=== PATIENT | female | born 1950 | race Caucasian/White ===

== ENCOUNTER 2018-02-22 14:41 | Inpatient (IN) | payer MEDICARE ==
[~2018-02-22] VITALS: Ht 160 cm; Wt 128.0 kg
--- NOTE | ~2018-02-22 | CON ---
[place], [place] REPORT OF CONSULTATION NAME: GLORIA BENITO [facility] #: [id number] UNIT #: [id number] ROOM: 416 DOCTOR: NITIN MORAN DO BIRTHDATE: [birth year] DOS: 02/23/2018 REQUESTING PHYSICIAN: Hospitalist service. REASON FOR CONSULTATION: Acute exacerbation of COPD. HISTORY OF PRESENT ILLNESS: The patient is a 68-year-old female who presented to the ED on 02/22/2018 due to shortness of breath. The patient reports that she has been experiencing cold symptoms including a cough as well as fatigue and itching in her throat for the past few weeks. She states that her boyfriend had similar symptoms and he reportedly about 10 days ago. The patient states that at his about a week ago, it seemed that everybody there had the same cold symptoms. The patient states that she has progressively been experiencing dyspnea on exertion to the point that she was not able to go to the bathroom and shower. She states that her son brought her to the ED for evaluation. A chest x-ray obtained in the ED showed no acute cardiopulmonary process. She was diagnosed with an acute exacerbation of COPD. Administered a DuoNeb treatment and a dose of IV Solu-Medrol and she was subsequently admitted to the general medical floor with telemetry monitoring. The patient reports that she does not use any supplemental oxygen at home. Reportedly, she has been using other people's leftover medications. She states that she uses Spiriva and another inhaler that she does not remember the name of. The Pulmonary Medicine Service was consulted for further management of the patient's acute exacerbation of COPD. PAST MEDICAL HISTORY: Lists include hypertension, hyperlipidemia, COPD, type 2 diabetes, diastolic CHF, CAD, gastroesophageal reflux disease and history of a prior myocardial infarction. PAST SURGICAL HISTORY: Reviewed of the patient's chart shows a history of coronary artery stent placement, history of an appendectomy and history of a cholecystectomy. SOCIAL HISTORY: The patient states that she has smoked 1 pack per day since she started high school. The patient denies use of alcohol or any illicit substances. She has one child. FAMILY HISTORY: The patient's father reportedly from lung cancer at age 95. The patient's mother reportedly from lung cancer in her seventh or eighth decade of life. The patient's sister reportedly from a head and neck cancer at age 64. ALLERGIES: No known drug allergies. CURRENT MEDICATIONS: These include potassium chloride 10 mEq daily, furosemide 20 mg daily, carvedilol 3.125 mg daily, clopidogrel 75 mg daily, omeprazole 20 mg daily, atorvastatin 80 mg before bed, subcutaneous Lovenox 40 mg daily, gabapentin 600 mg 3 times a day, DuoNeb treatments every 4 hours, guaifenesin 1200 mg every 12 hours, IV Solu-Medrol 60 mg every 12 hours and sliding scale insulin. [place], [place] REPORT OF CONSULTATION NAME: GLORIA BENITO UNIT #: [id number] ROOM: 416 DOCTOR: NITIN MORAN DO BIRTHDATE: [birth year] REVIEW OF SYSTEMS: GENERAL: Denies fevers or chills. HEENT: Denies changes to vision, hearing, eye pain, ear pain or dysphagia. She does admit to throat irritation. CARDIOVASCULAR: Denies chest pain, palpitations or diaphoresis. RESPIRATORY: Admits to shortness of breath, dyspnea on exertion, cough, wheezing, but denies production of sputum. ABDOMEN: Denies nausea, vomiting, abdominal pain, diarrhea, melena or hematochezia. GENITOURINARY: Denies dysuria, hematuria, increased urinary frequency or urgency. NEUROLOGICAL: Denies lightheadedness or dizziness. PSYCHOLOGICAL: Denies anxiety, depression or substance abuse. ENDOCRINE: Denies intolerance to heat or cold. SKIN: Denies any new rashes, ulcers, or lesions. PHYSICAL EXAMINATION: VITAL SIGNS: Temperature at 97.6 degrees Fahrenheit, heart rate at 86, respiratory rate at 19, blood pressure 129/71, pulse oximetry 92% on 3 liters via nasal cannula. GENERAL APPEARANCE: The patient was awake, alert, responsive, cooperative and in no acute distress. HEENT: Head was normocephalic and atraumatic. There were no lesions or ulcerations noted to eyes. NECK: Trachea appears midline. HEART: Regular rate and rhythm was noted. Positive S1, S2 sounds were heard. No murmurs, rubs or gallops were appreciated. The bilateral lower extremities were with trace edema. PULMONARY: Wheezing was heard on auscultation. No rhonchi or rales were appreciated. ABDOMEN: Soft and nontender to palpation. Bowel sounds are auscultated. The abdomen was obese. EXTREMITIES: The bilateral lower extremities were with trace edema. No clubbing, cyanosis or erythema was noted. NEUROLOGIC: The patient was grossly without any focal neurologic deficits. Cranial nerves 2-12 were grossly intact. PSYCHOLOGICAL: The patient was with a normal mood and affect. She was a poor historian. SKIN: Warm and dry without any induration or erythema. LABORATORY DATA: CBC from today shows white count at 5.1, hemoglobin 15.2, hematocrit 47.6 and platelets 224. Coagulation studies from today show PT 10.7, INR 1.0, activated PTT 21.9. Chemistries from today show sodium 138, potassium 4.4, chloride 101, bicarbonate 30, BUN 26, creatinine 1.11, glucose 298, hemoglobin A1c was 8.1, calcium 9.2, phosphorus 3.3, magnesium 2.1, total bilirubin 0.4, AST 26, ALT 57, alkaline phosphatase 97, albumin 3.4, vitamin B12 369, vitamin D 22.2, folic acid 10.55, TSH 0.357, free T4 1.12. Lipid panel is unremarkable. [place], [place] REPORT OF CONSULTATION [id number] #: [id number] ROOM: 416 DOCTOR: NITIN MORAN DO BIRTHDATE: [birth year] IMAGING STUDIES: Chest x-ray from 02/22/2018 showed no acute cardiopulmonary process and no change compared to a prior film from 03/27/2013. IMPRESSION: 1. Acute hypoxic respiratory failure. 2. Acute chronic obstructive pulmonary disease exacerbation. 3. Morbid obesity. 4. Lymphopenia. 5. Hyperglycemia. 6. Vitamin D deficiency. 7. Subclinical hypothyroidism. 8. History of chronic obstructive pulmonary disease. 9. History of congestive heart failure. 10. History of hypertension. 11. History of coronary artery disease. 12. History of gastroesophageal reflux disease. 13. History of hyperlipidemia. 14. History of type 2 diabetes. PLAN OF MANAGEMENT: The patient is currently on IV Solu-Medrol, guaifenesin and bronchodilator therapy. Sputum culture, rapid flu and a respiratory viral panel have been ordered. An arterial blood gas was ordered, but the patient refused to allow it to be drawn. The patient was counseled on smoking cessation for 3-5 minutes. Nicoderm patch was added to the patient's medication regimen. Supplemental oxygen should be titrated to maintain pulse oximetry at 92% or greater. Pulmonary medicine will continue to follow. Nitin Moran DO SAILAJA PRIDE MD CM:CONSTR:REPORT OF CONSULTATION 1401 02/23/18 1519 interface
--- NOTE | ~2018-02-22 | PR ---
[place], [place] PROGRESS NOTE NAME: GLORIA BENITO [facility] #: [id number] UNIT #: [id number] ROOM: 401 DOCTOR: BIGG DIXON MD,SAILAJA BIRTHDATE: [birth year] DOS: 02/24/2018 SUBJECTIVE: The patient independently seen and examined, [id number] encounter, history was confirmed. Physical examination performed. Labs reviewed. The assessment and management was personally completed. Note done by the medical assistant dermatology approved as well. She reported reduction in symptoms of cough, shortness of breath and wheezing. Denies symptoms of chest pain. The patient denies edema or pain of the lower extremities. PHYSICAL EXAMINATION: VITAL SIGNS: Normal temperature, respiratory rate 18, heart rate of 66, blood pressure 125/61. The pulse oxygen saturation recorded on 2 liters 94% saturation. HEENT: Examination shows head was atraumatic. Eyes nonicterus. NECK: Supple. CARDIOVASCULAR: S1, S2 is audible. LUNGS: The patient was noted without any crackles. Mild to moderate expiratory wheezing was noted, which was decreased as compared to previous examinations. ABDOMEN: Soft and chronic obesity. EXTREMITIES: Shows chronic obesity. LABORATORY DATA: CMP today: BUN 28 and glucose 341. CBC: WBC count 12.6. IMPRESSION: The patient who has been currently noted with; 1. Acute respiratory failure with acute exacerbation of chronic obstructive pulmonary disease. 2. Acute bronchitis. PLAN OF MANAGEMENT: Decrease the Solu-Medrol at the present time, that will also result in improvement of the uncontrolled hyperglycemia with diabetes mellitus. Potential discharge in the morning could be considered depending further improvement in the respiratory symptoms. SAILAJA PRIDE MD CM:PNTRANS [id number] SAILAJA DIXON MD 02/24/18 1445 interface
--- NOTE | ~2018-02-22 | CON ---
[place], [place] REPORT OF CONSULTATION NAME: GLORIA BENITO UNIT #: [id number] ROOM: 401 DOCTOR: BIGG DIXON MDSAILAJA BIRTHDATE: [birth year] DOS: 02/23/2018 PULMONARY CONSULTATION, EVALUATION AND MANAGEMENT CONSULTATION REQUESTED BY: Hospitalist Service. REASON FOR CONSULTATION: Assessment of COPD. HISTORY OF PRESENT ILLNESS: The patient is a 68-year-old white female patient who was seen and examined personally with [id number] encounter. History was taken from the patient. Physical examination was performed. Labs were reviewed. The assessment and management on today's visit was personally completed as well. The patient presented to the Emergency Room, stated that she has developed symptoms of coughing from exposure to people who gathered for the of her . The symptoms started last week, which have been noted gradually worsening, increased coughing, associated with shortness of breath and wheezing and chest tightness. She was also noted with symptoms of headache with that. The cough has been noted mostly nonproductive. She denies symptoms of chest pain. Currently, the patient is admitted to the hospital and being treated for acute exacerbation of COPD. REVIEW OF SYSTEMS: Completed by the medical appointment scheduler. PAST MEDICAL HISTORY: Noted with: 1. History of COPD, nonadherence with treatment because of lack of insurance coverage for the medication and other reasons. 2. History of congestive heart failure, diastolic dysfunction. 3. Essential hypertension. 4. Gastroesophageal reflux. 5. Coronary artery disease. 6. Myocardial infarction. 7. Hyperlipidemia. 8. Type 2 diabetes mellitus. 9. Chronic severe obesity. PAST SURGICAL HISTORY: 1. Cardiac catheterization and coronary stent insertion. 2. Appendectomy. 3. Cholecystectomy. SOCIAL HISTORY: The patient lives at home. Denies any history of alcohol use or illicit drug use. She is currently , has 1 child. Tobacco use is noted since earlier, 1 pack of cigarettes per day, active use. FAMILY HISTORY: Father with complications of lung cancer. Mother also with complications of lung cancer as well. MEDICATIONS: List noted use of ProAir HFA, Lipitor, Coreg, Plavix, Lasix, gabapentin, metformin, omeprazole, and potassium chloride. [place], [place] REPORT OF CONSULTATION NAME: GLORIA BENITO UNIT #: [id number] ROOM: [facility] DOCTOR: BIGG DIXON MD,SAILAJA BIRTHDATE: [birth year] DRUG ALLERGIES: No known drug allergies. PHYSICAL EXAMINATION: GENERAL: This is a 68-year-old female patient who has been currently noted sitting on the bed without any acute distress. Using oxygen supplementation via nasal cannula. Height of 5 feet 3 inches, weight of 282 pounds, BMI 49.9. VITAL SIGNS: Show normal temperature, respiratory rate 18-19, heart rate 83-78, blood pressure 127/90-129/71. Pulse oxygen saturation noted as 88% saturation on room air at rest, with 3 liters as 93% saturation. HEENT: Head was atraumatic. Eyes nonicterus. NECK: Supple. Decreased posterior pharyngeal space. CARDIOVASCULAR: S1, S2 audible. LUNGS: Noted with diffuse expiratory wheezing in the lungs bilaterally. There were no crackles. ABDOMEN: Soft with chronic severe obesity. EXTREMITIES: Noted without any acute edema, clubbing, or cyanosis. CENTRAL NERVOUS SYSTEM: Cranial nerves 2 through 12 are intact. No focal deficit. MUSCULOSKELETAL: Noted without any acute deformities. LABORATORY DATA: CBC that was done on admission yesterday, normal WBC count, hemoglobin 16.2, platelet count normal. PT, PTT noted normal yesterday. CMP yesterday: BUN 18, creatinine was normal. Remaining electrolytes normal. CBC this morning remains normal. PT, PTT repeated again this morning normal. Glucose noted 298 this morning, BUN 26. RADIOLOGY: Chest x-ray that was done on 02/22/2018 was noted without any acute pulmonary abnormality, except hyperinflation. IMPRESSION: The patient who will be currently admitted to the hospital noted with: 1. Acute hypoxic respiratory failure as a result of acute exacerbation of chronic obstructive pulmonary disease with history of chronic nicotine dependence. 2. Chronic obesity, highly suggestive based on physical habitus and examination for suspected obstructive sleep apnea disorder. 3. The patient with chronic nicotine dependence. 4. History of type 2 diabetes mellitus, which is uncontrolled because of corticosteroids. 5. Acute infection was also noted. PLAN OF MANAGEMENT: I agree with the use of Solu-Medrol, bronchodilators, nicotine replacement patches ordered. The arterial blood gases ordered to assess for hypercapnia, cause of the headache. The patient refused to have the arterial blood gases done. Titrate oxygen supplementation to maintain pulse ox 92% or greater. Other additional treatment changes to be made for the patient based on progression of the illness. Other care and therapy to be given. Obtain the nasal swab, viral assessment for the current cause of exacerbation of COPD. Continue other supportive therapy, plan of management and care. Sputum for Gram stain and culture if the patient is able to expectorate sputum. [place], [place] REPORT OF CONSULTATION NAME: GLORIA BENITO UNIT #: [id number] ROOM: [facility] DOCTOR: SAILAJA VILLEGAS MD BIRTHDATE: [birth year] SAILAJA PRIDE MD CM:CONSTR:REPORT OF CONSULTATION 1334 03/07/18 1001 interface
--- NOTE | ~2018-02-22 | PR ---
[place], [place] PROGRESS NOTE NAME: GLORIA BENITO [facility] #: [id number] UNIT #: [id number] ROOM: 401 DOCTOR: NITIN MORAN DO BIRTHDATE: [birth year] DOS: 02/24/2018 SUBJECTIVE: The patient was seen and examined at the bedside. She denies fevers, chills, chest pain, nausea, vomiting, abdominal pain or any changes in her bowel or bladder habits. The patient reports that her breathing is overall better. She is still with an occasional cough productive for yellow sputum. She does admit to wheezing. She is wondering when she would be stable for discharge. OBJECTIVE: VITAL SIGNS: Show temperature at 98.2 degrees Fahrenheit, heart rate 66, respiratory rate 18, most recent blood pressure was 125/61, pulse oximetry is 94% on 2 liters via nasal cannula. GENERAL APPEARANCE: The patient was awake, alert, responsive, cooperative and in no acute distress. HEENT: Head was normocephalic and atraumatic. There were no lesions or ulcerations noted to the eyes. NECK: Trachea appears midline. HEART: Regular rate and rhythm was noted. Positive S1, S2 sounds were heard. No murmurs, rubs or gallops were appreciated. The bilateral lower extremities were without edema. PULMONARY: Wheezing was heard on auscultation. No rhonchi or rales were appreciated. ABDOMEN: Soft and nontender to palpation. Bowel sounds were present. The abdomen was obese. EXTREMITIES: Bilateral lower extremities were without edema. No clubbing, cyanosis or erythema was noted. LABORATORY DATA: CBC from today shows white count at 12.6, hemoglobin 15.2, hematocrit 48.0, platelets 234. Chemistries from today shows sodium 140, potassium 4.9, chloride 103, bicarbonate 30, BUN 28, creatinine 1.08, glucose was 341, calcium 10.1, total bilirubin 0.3, AST 21, ALT 44, alkaline phosphatase 91, albumin 3.4. SEROLOGIES: A viral panel is pending. MICROBIOLOGY: Flu swab was negative for flu A and flu B. Sputum cultures are still uncollected. IMPRESSION: 1. Acute hypoxic respiratory failure secondary to an acute exacerbation of chronic obstructive pulmonary disease, which is improving. 2. Leukocytosis. 3. Lymphopenia. 4. Hyperglycemia. 5. Tobacco abuse. 6. Morbid obesity. 7. Suspected sleep apnea secondary to the patient's body habitus. 8. Noncompliance with medical therapy as the patient has been refusing bedside blood glucose monitoring, she has been refusing arterial blood gases and she has [place], [place] PROGRESS NOTE NAME: GLORIA BENITO UNIT #: [id number] ROOM: 401 DOCTOR: NITIN MORAN DO BIRTHDATE: [birth year] been refusing use of a BiPAP. PLAN OF MANAGEMENT: The patient is currently being treated with IV Solu-Medrol, guaifenesin and bronchodilator therapy for her acute exacerbation of COPD. She is clinically improving. Serologies and sputum cultures have been ordered. Supplemental oxygen should be titrated to maintain pulse oximetry at 92% or greater. If the patient continues to improve clinically, discharge as early as tomorrow may be considered. Pulmonary medicine will continue to follow. Nitin Moran DO SAILAJA PRIDE MD CM:PNHALEY [id number] NITIN MORAN DO 02/24/18 1001 interface
--- NOTE | ~2018-02-22 | EKG ---
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
--- NOTE | ~2018-02-22 | PR ---
[place], [place] PROGRESS NOTE NAME: GLORIA BENITO UNIT #: [id number] ROOM: 401 DOCTOR: SAILAJA VILLEGAS MD BIRTHDATE: [birth year] DOS: 02/25/2018 PULMONARY PROGRESS NOTE SUBJECTIVE: The patient was seen and examined on 02/25/2018, remains comfortable, stable with reduction of the respiratory symptoms, shortness breath, cough, wheezing, all of them were noted in the last 48 hours gradually. OBJECTIVE: VITAL SIGNS: Normal temperature, respiratory rate 20, heart rate 69, blood pressure 119/93. Pulse ox saturation on 2 liters nasal cannula 93% saturation. HEENT: Examination shows head was atraumatic. Eyes nonicterus. NECK: Supple. CARDIOVASCULAR: S1, S2 is audible. LUNGS: Noted without any wheeze or crackle at the present time. The wheezing has been decreased significantly. Mild to moderate decreased breath sounds noted in the lungs bilaterally. ABDOMEN: Soft and obese. EXTREMITIES: Chronic obesity. LABORATORY DATA: CBC: WBC count 11,000, remaining CBC normal. BMP of the patient, BUN 26 and creatinine normal. IMPRESSION: The patient with progressive resolution and improvement in the respiratory status noted to be resolving, acute hypoxic respiratory failure with acute exacerbation of chronic obstructive pulmonary disease and acute bronchitis. PLAN OF MANAGEMENT: The patient could be considered home discharge at the present time with a tapering dose of prednisone. Bronchodilators. Abstinence of tobacco use was recommended. The patient will be ordered a 6-minute walk test to assess any need for home oxygen supplementation if necessary. Outpatient assessment was suggested for further assessment for the patient for the assessment of chronic obstructive pulmonary disease and for suspected obstructive sleep apnea disorder. [place], [place] PROGRESS NOTE NAME: GLORIA BENITO UNIT #: [id number] ROOM: 401 DOCTOR: SAILAJA VILLEGAS MD BIRTHDATE: [birth year] SAILAJA PRIDE MD CM:PNTRANS 172 SAILAJA DIXON MD 02/25/18 1724 interface
[~2018-02-22 14:41] MED LIST: ACETAMINOPHEN &1 TA1 PO; ATORVASTATIN CA80 M1 PO; BLOOD PRESSURE; CARVEDILOL3.125 MG PO; CHOLESTEROL; CLOPIDOGREL75 MG PO; FUROSEMIDE20 M1 PO; GLUCOPHAGE1000 MG PO; HYDROCODONE BIT1 T11 PO; NEURONTIN600 MG PO; POTASSIUM CHLO10 ME5 PO; PRILOSEC20 MG PO; PROAIR HFA8.5 GM INH; PROTONIX40 MG PO
[2018-02-22 14:42] VITALS: BP 127/91
[2018-02-22 15:10] LABS: BASO % 0.6 % (0.0-1.0); EOS # 0.2 10*3/uL (0.0-0.4); EOS % 4.4 % (1.0-4.0); HEMATOCRIT 49.3 % (37.0-47.0); HEMOGLOBIN 16.2 g/dl (12.0-16.0); LYMPH # 1.8 10*3/uL (1.3-4.4); LYMPH % 34.1 % (27.0-41.0); MEAN CELL VOLUME 94.4 fl (81.0-99.0); MEAN CORPUSCULAR HGB CONC 32.9 g/dl (33.0-37.0); MEAN PLATELET VOLUME 10.2 fl (9.6-12.3); MONO # 0.8 10*3/uL (0.1-1.0); MONO % 14.3 % (3.0-9.0); NEUT # 2.4 10*3/uL (2.3-7.9); NEUT % 46.2 % (47.0-73.0); PLATELET COUNT AUTOMATED 244 10*3/uL (130-400); RED BLOOD COUNT 5.22 10*6/uL (4.10-5.10); RED CELL DISTRI WIDTH 13.9 % (0-14.5); WHITE BLOOD COUNT 5.3 10*3/uL (4.8-10.8)
[2018-02-22 15:19] LABS: ACT PARTIAL THROMBO TIME 22.1 SECONDS (20.8-31.5)
[2018-02-22 15:25] LABS: ALBUMIN 3.7 gm/dl (3.1-4.5); ALKALINE PHOSPHATASE 98 U/L (45-117); BUN 18 mg/dl (7-24); CHLORIDE 104 mmol/L (98-107); CREATININE 0.95 mg/dL (0.55-1.02); LIPASE 152 U/L (73-393); POTASSIUM 4.1 mmol/L (3.5-5.1); SGOT/AST 39 IU/L (3-35); SGPT/ALT 61 U/L (12-78); SODIUM 140 mmol/L (136-145); TOTAL PROTEIN 7.5 gm/dL (6.4-8.2); TROPONIN I 0.033 ng/ml (<0.045)
[2018-02-22 15:52] VITALS: BP 119/81
[2018-02-22 16:36] VITALS: BP 114/70
[2018-02-22 18:05] VITALS: BP 126/73
[2018-02-22 20:00] VITALS: BP 118/64; BP 122/72
[2018-02-23] VITALS: BP 141/85
[2018-02-23 05:44] LABS: ALBUMIN 3.4 gm/dl (3.1-4.5); CREATININE 1.11 mg/dL (0.55-1.02); FREE T4 1.12 ng/dl (0.76-1.46); PHOSPHOROUS 3.3 mg/dL (2.5-4.9); POTASSIUM 4.4 mmol/L (3.5-5.1); TOTAL PROTEIN 6.7 gm/dL (6.4-8.2)
[2018-02-23 05:49] LABS: THYROID STIM HORMONE (HS) 0.357 uIU/ml (0.358-4.75)
[2018-02-23 06:01] LABS: BASO % 0.2 % (0.0-1.0); HEMATOCRIT 47.6 % (37.0-47.0); HEMOGLOBIN 15.2 g/dl (12.0-16.0); LYMPH # 0.8 10*3/uL (1.3-4.4); LYMPH % 16.1 % (27.0-41.0); MEAN CELL VOLUME 95.8 fl (81.0-99.0); MEAN CORPUSCULAR HGB 30.6 pg (27.0-31.0); MEAN CORPUSCULAR HGB CONC 31.9 g/dl (33.0-37.0); MEAN PLATELET VOLUME 10.5 fl (9.6-12.3); MONO % 0.8 % (3.0-9.0); NEUT # 4.2 10*3/uL (2.3-7.9); NEUT % 82.1 % (47.0-73.0); PLATELET COUNT AUTOMATED 224 10*3/uL (130-400); RED BLOOD COUNT 4.97 10*6/uL (4.10-5.10); RED CELL DISTRI WIDTH 13.7 % (0-14.5); WHITE BLOOD COUNT 5.1 10*3/uL (4.8-10.8)
[2018-02-23 06:33] LABS: ACT PARTIAL THROMBO TIME 21.9 SECONDS (20.8-31.5)
[2018-02-23 07:25] LABS: VITAMIN D, 25-HYDROXY 22.2 ng/mL (30-100)
[2018-02-23 08:00] VITALS: BP 129/71
[2018-02-23 12:00] VITALS: BP 121/67
[2018-02-23 16:00] VITALS: BP 108/78
[2018-02-23 20:00] VITALS: BP 125/55
[2018-02-24] VITALS: BP 125/61
[2018-02-24 06:51] LABS: BASO % 0.1 % (0.0-1.0); HEMOGLOBIN 15.2 g/dl (12.0-16.0); LYMPH # 0.9 10*3/uL (1.3-4.4); LYMPH % 7.1 % (27.0-41.0); MEAN CELL VOLUME 96.8 fl (81.0-99.0); MEAN CORPUSCULAR HGB 30.6 pg (27.0-31.0); MEAN CORPUSCULAR HGB CONC 31.7 g/dl (33.0-37.0); MEAN PLATELET VOLUME 10.7 fl (9.6-12.3); MONO # 0.3 10*3/uL (0.1-1.0); MONO % 2.5 % (3.0-9.0); NEUT # 11.3 10*3/uL (2.3-7.9); NEUT % 89.3 % (47.0-73.0); PLATELET COUNT AUTOMATED 234 10*3/uL (130-400); RED BLOOD COUNT 4.96 10*6/uL (4.10-5.10); RED CELL DISTRI WIDTH 13.7 % (0-14.5); WHITE BLOOD COUNT 12.6 10*3/uL (4.8-10.8)
[2018-02-24 06:59] LABS: ALBUMIN 3.4 gm/dl (3.1-4.5); BUN 28 mg/dl (7-24); CHLORIDE 103 mmol/L (98-107); POTASSIUM 4.9 mmol/L (3.5-5.1); SODIUM 140 mmol/L (136-145)
[2018-02-24 07:03] LABS: ALKALINE PHOSPHATASE 91 U/L (45-117); CREATININE 1.08 mg/dL (0.55-1.02); SGOT/AST 21 IU/L (3-35); SGPT/ALT 44 U/L (12-78); TOTAL PROTEIN 6.9 gm/dL (6.4-8.2)
[2018-02-24 12:00] VITALS: BP 116/76
[2018-02-24] MEDS ORDERED: OXYGEN NAS ×2 (13:14→13:26)
[2018-02-24 16:00] VITALS: BP 126/82
[2018-02-24 20:00] VITALS: BP 116/72
[2018-02-25] VITALS: BP 119/93
[2018-02-25 07:10] LABS: BASO % 0.2 % (0.0-1.0); HEMATOCRIT 45.9 % (37.0-47.0); HEMOGLOBIN 14.6 g/dl (12.0-16.0); LYMPH # 0.7 10*3/uL (1.3-4.4); LYMPH % 6.5 % (27.0-41.0); MEAN CORPUSCULAR HGB 30.9 pg (27.0-31.0); MEAN CORPUSCULAR HGB CONC 31.8 g/dl (33.0-37.0); MEAN PLATELET VOLUME 10.2 fl (9.6-12.3); MONO # 0.4 10*3/uL (0.1-1.0); MONO % 3.6 % (3.0-9.0); NEUT # 9.8 10*3/uL (2.3-7.9); NEUT % 88.4 % (47.0-73.0); PLATELET COUNT AUTOMATED 230 10*3/uL (130-400); RED BLOOD COUNT 4.73 10*6/uL (4.10-5.10); RED CELL DISTRI WIDTH 14.1 % (0-14.5); WHITE BLOOD COUNT 11.1 10*3/uL (4.8-10.8)
[2018-02-25 07:29] LABS: BUN 26 mg/dl (7-24); CHLORIDE 102 mmol/L (98-107); CREATININE 1.01 mg/dL (0.55-1.02); POTASSIUM 4.5 mmol/L (3.5-5.1); SODIUM 139 mmol/L (136-145)
[2018-02-25 08:00] VITALS: BP 122/60
[2018-02-25] MEDS ORDERED: PROAIR HFA8.5 GM INH (12:40)
[2018-02-25] MEDS ORDERED: VITAMIN D31000 UNI1 PO (12:40)
[2018-02-25] MEDS ORDERED: PREDNISONE10 MG PO (12:40)
[2018-02-25] MEDS ORDERED: DULE1ARO INH (12:40)
[2018-02-26 00:02] LABS: ADENOVIRUS Negative (Negative); INFLUENZA A Negative (Negative); INFLUENZA B Negative (Negative); METAPNEUMOVIRUS Negative (Negative); PARAINFLUENZA 1 Negative (Negative); PARAINFLUENZA 2 Negative (Negative); PARAINFLUENZA 3 Negative (Negative); RHINOVIRUS Positive (Negative); RSV A Negative (Negative); RSV B Negative (Negative)
== END 2018-02-25 13:09 | disposition home or self-care (01) | DRG 193 ==
LOC: ED 14:41 → EDHOLD 16:30 → 4E 16:30
PROVIDERS: Internal Medicine; Internal Medicine Critical Care Medicine; Nurse Practitioner Family
DX: J18.9 Pneumonia, unspecified organism (principal); N17.0 Acute kidney failure with tubular necrosis; J96.01 Acute respiratory failure with hypoxia; J44.1 Chronic obstructive pulmonary disease with (acute) exacerbation; I50.32 Chronic diastolic (congestive) heart failure; J44.0 Chronic obstructive pulmonary disease with (acute) lower respiratory infection; F17.210 Nicotine dependence, cigarettes, uncomplicated; I25.10 Atherosclerotic heart disease of native coronary artery without angina pectoris; K21.9 Gastro-esophageal reflux disease without esophagitis; E78.5 Hyperlipidemia, unspecified; E11.9 Type 2 diabetes mellitus without complications; D64.9 Anemia, unspecified; E11.65 Type 2 diabetes mellitus with hyperglycemia; E83.41 Hypermagnesemia; E02 Subclinical iodine-deficiency hypothyroidism; I11.0 Hypertensive heart disease with heart failure; E55.9 Vitamin D deficiency, unspecified; J20.9 Acute bronchitis, unspecified; E66.01 Morbid (severe) obesity due to excess calories; D72.810 Lymphocytopenia; Z95.5 Presence of coronary angioplasty implant and graft; Z90.49 Acquired absence of other specified parts of digestive tract; Z79.02 Long term (current) use of antithrombotics/antiplatelets; Z79.84 Long term (current) use of oral hypoglycemic drugs; Z79.899 Other long term (current) drug therapy; Z71.6 Tobacco abuse counseling; Z99.81 Dependence on supplemental oxygen; Z91.19 Patient's noncompliance with other medical treatment and regimen; Z80.1 Family history of malignant neoplasm of trachea, bronchus and lung; Z82.49 Family history of ischemic heart disease and other diseases of the circulatory system

== ENCOUNTER 2018-03-06 13:59 | Inpatient (IN) | payer MEDICARE ==
[~2018-03-06] VITALS: Ht 162.5 cm; Wt 130.7 kg
--- NOTE | ~2018-03-06 | PR ---
[place], [place] [facility]GRESS NOTE [id number] #: [id number] ROOM: 411 DOCTOR: BIGG DIXON MD,SAILAJA BIRTHDATE: [birth year] DOS: 03/08/2018 PULMONARY PROGRESS NOTE SUBJECTIVE: The patient was noted comfortable at this time, resting on the bed. She has reported reduction in symptoms of cough, chest pain and wheezing; however, the cough is still noted nonproductive and moderate in intensity. There were no symptoms of chest pain. She denies symptoms of nausea or vomiting. OBJECTIVE: VITAL SIGNS: For the patient which were recorded showed the temperature noted as normal. The respiratory rate of 20, heart rate 54, blood pressure 129/54. The pulse oxygen saturation of the patient recorded as 92% saturation on 3 liters nasal cannula. HEENT: Shows head was atraumatic. Eyes nonicterus. NECK: Supple. CARDIOVASCULAR: S1, S2 is audible. LUNGS: Noted without any crackles. Moderate decreased breath sounds noted with diffuse expiratory wheezing still present. ABDOMEN: Soft and obese. EXTREMITIES: Without any acute edema. MUSCULOSKELETAL: Noted without any acute deformities. IMPRESSION: 1. The patient with acute exacerbation of chronic obstructive pulmonary disease with acute bronchitis. 2. Chronic obesity, suspected obstructive sleep apnea disorder as well. PLAN OF THERAPY: Continue current dose of steroids. Follow the respiratory status closely. No changes in medical management, plan of care, other treatment therapies and care. Usual treatment and other therapies. SAILAJA PRIDE MD CM:PNTRANS 1443 [id number] SAILAJA DIXON MD 03/09/18 0025 interface
--- NOTE | ~2018-03-06 | PR ---
[place], [place] PROGRESS NOTE NAME: GLORIA BENITO [facility] #: [id number] UNIT #: [id number] ROOM: 411 DOCTOR: BIGG DIXON MD,SAILAJA BIRTHDATE: [birth year] DOS: 03/09/2018 SUBJECTIVE: The patient noted with partial improvement in respiratory symptom, coughing noted a small greenish sputum expectoration. Shortness of breath and wheezing was noted decreasing. There were no symptoms of chest pain or hemoptysis. OBJECTIVE: VITAL SIGNS: Normal temperature, respiratory rate 18, heart rate 59, blood pressure 129/67. Pulse oxygen saturation of the patient recorded on 2 liters nasal cannula 94% saturation. HEENT: Head was atraumatic. Eyes nonicterus. NECK: Supple. CARDIOVASCULAR: S1, S2 is audible. LUNGS: The patient was noted with [id number]-[id number] decreased breath sounds with [id number]-[id number] expiratory wheezing noted partially decreased from yesterday. ABDOMEN: Soft and nontender. Bowel sounds present. EXTREMITIES: Chronic obesity. LABORATORY DATA: Culture of the sputum for the patient noted normal radha from the with final culture results were pending. BMP of the patient, glucose 305 today, BUN and creatinine were normal. CO2 of 35. IMPRESSION: Ongoing acute exacerbation of chronic obstructive pulmonary disease for acute tracheobronchitis in current hospitalization. History of past nicotine use, suspect obstructive sleep apnea disorder so far has not been assessed. PLAN OF THERAPY: The patient would continue current medical treatment plan of management. Follow the culture results. Consider changes in the medication for the patient based on progression of the illness. Gradual reduction and improvement in respiratory symptoms so far has been seen with current treatment. SAILAJA PRIDE MD CM:PNTRANS 1210 44 SAILAJA DIXON MD 03/09/185 interface
--- NOTE | ~2018-03-06 | PR ---
[place], [place] PROGRESS NOTE [id number] UNIT #: [id number] ROOM: 411 DOCTOR: BIGG DIXON MD,SAILAJA BIRTHDATE: [birth year] DOS: 03/10/2018 SUBJECTIVE: The patient noted comfortable, continued to show reduction of the respiratory symptom, coughing, wheezing, shortness of breath, and others. Denies symptoms of chest pain. OBJECTIVE: VITAL SIGNS: Normal temperature, respiratory rate 20, heart rate 94, blood pressure 136/66, pulse ox saturation on 3 liters nasal cannula 93% saturation. GENERAL: Chronic obesity. NECK: Supple. CARDIOVASCULAR: S1, S2 audible. LUNGS: Mild expiratory wheezing. There were no crackles. ABDOMEN: Soft, nontender, bowel sounds present. EXTREMITIES: Chronic obesity. LABORATORY DATA: Culture of the sputum, normal radha. Chest x-ray which was done this morning does not show any acute infiltration. The infiltration in the right middle lobe is resolving, small left pleural fluid were noted. PLAN OF TREATMENT: Discharge the patient on oral antibiotic. The patient with Levaquin or similar medication for the next 7 days. Continue use of home oxygen. The patient would be advised about continuing abstinent tobacco use, continue oxygen. Outpatient appointment to be established in office between 1-2 weeks post-discharge was recommended. SAILAJA PRIDE MD CM:PNTRANS [id number] SAILAJA DIXON MD 03/11/18 002 interface
--- NOTE | ~2018-03-06 | CON ---
[place], [place] REPORT OF CONSULTATION NAME: GLORIA BENITO [facility] #: [id number] UNIT #: [id number] ROOM: 411 DOCTOR: SAILAJA VILLEGAS MD BIRTHDATE: [birth year] DOS: 03/07/2018 PULMONARY CONSULTATION, EVALUATION, AND MANAGEMENT REASON FOR CONSULTATION: For the assessment of ongoing acute exacerbation of COPD with recurrent symptoms. HISTORY OF PRESENT ILLNESS: This is a 68-year-old white female patient who has been admitted in this hospital recently and discharged home on the date of 02/25/2018. The patient remained in the hospital from the date of 02/22/2018. She has been treated for acute exacerbation of COPD, noted significant improvement in the symptoms and discharged home on tapering dose of prednisone, antibiotics, bronchodilators and others. She presented back to the hospital with increased symptoms of shortness of breath with nonproductive cough and wheezing. The patient stated symptoms have been noted worsened for the couple of days after discharge. Symptoms have been noted with gradual increase. She has been reported [id number] nonproductive cough with chest congestion, wheezing, shortness of breath and edema of lower extremity. Denies symptoms of hemoptysis or any chest pain. REVIEW OF SYSTEMS: CONSTITUTIONAL: Fatigue and tiredness noted without any symptoms of fever or chills. EYES: Denies burning, redness, or tenderness. EARS, NOSE, THROAT SYMPTOMS: Denies sore throat, hoarseness, otalgia, postnasal drainage or epistaxis. CARDIOVASCULAR: Angina pain, edema, pain of the lower extremity. GASTROINTESTINAL: Dysphagia, nausea, vomiting, diarrhea, abdominal pain, hematemesis, melena, hematochezia, chronic severe obesity. GENITOURINARY: No dysuria, suprapubic pain, hematuria. MUSCULOSKELETAL: No acute joint pain, redness, or tenderness. SKIN: Denies abnormal lesions or rashes. CENTRAL NERVOUS SYSTEM: Denies diplopia, syncopal episode, seizures. Remaining systems were reviewed. They were noted all negative. PAST MEDICAL HISTORY: 1. Noted with COPD. 1. Congestive heart failure, diastolic dysfunction. 2. Essential hypertension. 3. Gastroesophageal reflux. 4. Coronary artery disease. 5. Myocardial infarction. 6. Hyperlipidemia. 7. Type 2 diabetes mellitus. 8. Chronic severe obesity. PAST SURGICAL HISTORY: 1. Appendectomy. 2. Cardiac catheterization and coronary stents insertion. [place], [place] REPORT OF CONSULTATION [id number] UN[facility] #: [id number] ROOM: 411 DOCTOR: BIGG DIXON MD,SAILAJA BIRTHDATE: [birth year] 3. Cholecystectomy. SOCIAL HISTORY: The patient lives at home. Denies history of alcohol use, illicit drug use. She is , has 1 child. Denies history of alcohol use or any illicit drugs. Tobacco use was noted teenager, 1 pack of cigarettes per day. Denies any cigarette for this patient at the present time since discharge from the hospital, but I am doubtful about that. FAMILY HISTORY: The patient's father from complication of lung cancer. Mother with complication of lung cancer as well. HOME MEDICATIONS: Noted use of Dulera, ProAir HFA inhaler, Plavix, Lasix, Coreg, metformin, gabapentin, omeprazole, and potassium chloride. DRUG ALLERGIES: None. PHYSICAL EXAMINATION: GENERAL: This is a 68-year-old white female who has been currently sitting on the bed without acute distress this morning of assessment. Height of 5 feet 4 inches, weight of 284 pounds, BMI 48.7. VITAL SIGNS: For the patient, reviewed shows a temperature normal since admission, 24-hour respiratory rate range between 20-24, heart rate 66-51, blood pressure 119/69-116/76. Pulse oxygen saturation of the patient recorded as 90-94% saturation on 2 liter nasal cannula at rest. HEENT: Chronic obesity. Head was atraumatic. Eyes: No icterus. NECK: Supple. It was obese. CARDIOVASCULAR SYSTEM: S1, S2 is audible. LUNGS: The patient was noted with generalized reduction in the breath sounds with moderate expiratory wheezing. Occasional crackles of the lungs. ABDOMEN: Soft and obese. EXTREMITIES: Shows mild edema of the ankles. SKIN: No visible skin lesions or rashes. CENTRAL NERVOUS SYSTEM: Nonfocal. MUSCULOSKELETAL: Without any acute deformities. LABORATORY DATA: The respiratory viral panel for the patient, which was done in previous admission noted as rhinovirus infection. CBC on 03/06/2018, WBC count were noted as 19.8, hemoglobin and hematocrit normal, platelet count were normal. PT/PTT of patient was noted as normal. The CMP of patient that was done 03/06/2018, glucose 272, BUN 19, creatinine 1.14. Remaining LFTs normal except albumin mildly decreased 3.0. The arterial blood gas of the patient that was done yesterday, pH of 7.45, pCO2 of 46, pO2 of 66.5 on 2-1/2 liter nasal cannula. Troponin yesterday normal. CMP this morning, normal BUN and creatinine, glucose 285. PT/PTT this morning normal. CBC this morning, WBC count 16.7, hemoglobin and hematocrit was normal. The chest x-ray that was done on admission noted with basilar area of atelectasis noted with a small pleural fluid cannot be completely excluded with mild pulmonary venous congestion. IMPRESSION: 1. The patient has been noted with past rhinovirus isolation, nasopharyngeal [place], [place] REPORT OF CONSULTATION NAME: GLORIA BENITO UNIT #: [id number] ROOM: 411 DOCTOR: SAILAJA VILLEGAS MD BIRTHDATE: [birth year] swab for the patient was available. The patient noted with acute exacerbation of chronic obstructive pulmonary disease. The patient with acute tracheobronchitis with possible nonadherence with the treatment including tobacco use would be considered. 2. Small pleural fluid was noted at the present time for the as well. There was no finding of acute bacterial pneumonia. 3. Fluid overload. Congestive heart failure, diastolic dysfunction would be considered. PLAN OF MANAGEMENT: Continue diuretics, bronchodilators. Discontinue the antibiotics. Continuation of other supportive plan of management and therapy, plan of care. Obtain a chest x-ray, PA and lateral more accurately to assess basilar part of the lung as well. Intravenous diuretic will be given if the pleural fluid with the PA lateral view will be confirmed to be present with significant pleural fluid and/or congestive heart failure, combination. Abstinence from the tobacco use was encouraged for this patient for future as well. Try to the oxygen supplementation to maintain a pulse ox saturation 92% or greater. The patient has been noted with a stable chronic hypoxic respiratory failure and saturating in the normal range in the usual home oxygen supplementation. Thanks for allowing me to participate in care of this patient. SAILAJA PRIDE MD CM:CONSTR:REPORT OF CONSULTATION 1025 03/23/18 0758 interface
--- NOTE | ~2018-03-06 | PROC NOTE ---
[place], [place] PROCEDURE NOTE NAME: GLORIA BENITO UNIT #: [id number] ROOM: 411 DOCTOR: PASCALE WORRELL BIRTHDATE: [birth year] DOS: 03/08/2018 MODIFIED BARIUM SWALLOW LOCATION: [facility]. ROOM: 411. BED: 2. ORDERING PHYSICIAN: Dr. Jeúss Szymanski. RADIOLOGIST: Dr. Quick. BACKGROUND INFORMATION: The patient is a 68-year-old female who was seen for modified barium swallow. This was ordered to rule out aspiration. The patient is diagnosed with pneumonia and sepsis. She was recently discharged from this hospital, but presented back due to worsening of symptoms. Further medical history includes COPD and IDDM, CHF, GERD and HTN. The patient currently receives a regular diet and thin liquid. She denied any swallowing difficulties. Oral peripheral examination revealed presence of natural teeth. Lingual, labial, and buccal skills were within normal limits in terms of strength, range of motion, and coordination. The patient was able to volitionally cough and swallow. She did present with oxygen via nasal cannula. No shortness of breath was reported during the exam. METHODS AND MATERIALS USED FOR THE EXAM: The patient was positioned in the lateral plane and the exam was viewed under fluoroscopy. The patient was presented with a variety of consistencies to assess swallowing skills including applesauce mixed with barium presented in half teaspoon amounts, barium-coated cookie given in bite size piece and thin liquid barium taken by cup and straw. The patient was given the cup and instructed to swallow in her normal sip size amount. ORAL PHASE: Unremarkable. PHARYNGEAL PHASE: Unremarkable. ESOPHAGEAL PHASE: This phase of the swallow was not formally assessed during this exam. IMPRESSIONS AND RECOMMENDATIONS: Based upon assessment results, this 68-year-old patient presents with oral and pharyngeal swallowing skills that are within normal limits. Recommend she remain on present diet. Follow up therapy is not warranted at this time. Results and recommendations were shared with the patient and her nurse and they verbalized understanding. Thank you very much for this referral. Should you have any questions regarding this patient, please contact the speech pathologist at [phone]. [place], [place] PROCEDURE NOTE NAME: GLORIA BENITO UNIT #: [id number] ROOM: 411 DOCTOR: PASCALE WORRELL BIRTHDATE: [birth year] PASCALE WORRELL CM:PROCNOTE:PROCEDURE NOTE [id number] 191 JESÚS WORRELL
[~2018-03-06 13:59] MED LIST changes: +DULE1ARO INH; +OXYGEN NAS; +PREDNISONE10 MG PO; +VITAMIN D31000 UNI1 PO
[2018-03-06 14:02] VITALS: BP 125/81
[2018-03-06 14:34] LABS: BASO % 0.2 % (0.0-1.0); EOS # 0.1 10*3/uL (0.0-0.4); EOS % 0.4 % (1.0-4.0); HEMATOCRIT 46.3 % (37.0-47.0); HEMOGLOBIN 15.2 g/dl (12.0-16.0); LYMPH # 1.8 10*3/uL (1.3-4.4); LYMPH % 8.8 % (27.0-41.0); MEAN CELL VOLUME 94.5 fl (81.0-99.0); MEAN CORPUSCULAR HGB CONC 32.8 g/dl (33.0-37.0); MEAN PLATELET VOLUME 10.2 fl (9.6-12.3); MONO # 1.4 10*3/uL (0.1-1.0); MONO % 7.1 % (3.0-9.0); NEUT # 16.4 10*3/uL (2.3-7.9); NEUT % 82.8 % (47.0-73.0); PLATELET COUNT AUTOMATED 280 10*3/uL (130-400); RED CELL DISTRI WIDTH 13.4 % (0-14.5); WHITE BLOOD COUNT 19.8 10*3/uL (4.8-10.8)
[2018-03-06 14:44] LABS: ACT PARTIAL THROMBO TIME 19.5 SECONDS (20.8-31.5); INTERNATIONAL NORM RATIO 0.9 (2.0-3.5)
[2018-03-06 14:51] LABS: CREATININE 1.14 mg/dL (0.55-1.02); POTASSIUM 3.6 mmol/L (3.5-5.1); TOTAL PROTEIN 6.7 gm/dL (6.4-8.2); TROPONIN I 0.021 ng/ml (<0.045)
[2018-03-06 15:39] VITALS: BP 120/66
[2018-03-06 15:55] VITALS: BP 116/59
[2018-03-06 19:15] LABS: ABG BASE EXCESS 7.5 mmol/L (-2.0-2.0); ABG HCO3 32.5 mmol/l (22-26); ARTERIAL BLOOD GAS PCO2 46.3 mmHg (35-45); ARTERIAL BLOOD GAS PH 7.457 (7.35-7.45); ARTERIAL BLOOD GAS PO2 66.5 mmHg (80-90)
[2018-03-06 20:00] VITALS: BP 127/58
[2018-03-07] VITALS: BP 116/56
[2018-03-07 06:11] LABS: HEMOGLOBIN 13.8 g/dl (12.0-16.0); MEAN CELL VOLUME 95.1 fl (81.0-99.0); MEAN CORPUSCULAR HGB 30.5 pg (27.0-31.0); MEAN CORPUSCULAR HGB CONC 32.1 g/dl (33.0-37.0); MEAN PLATELET VOLUME 10.1 fl (9.6-12.3); PLATELET COUNT AUTOMATED 264 10*3/uL (130-400); RED BLOOD COUNT 4.52 10*6/uL (4.10-5.10); RED CELL DISTRI WIDTH 13.4 % (0-14.5); WHITE BLOOD COUNT 16.7 10*3/uL (4.8-10.8)
[2018-03-07 06:25] LABS: ALBUMIN 2.5 gm/dl (3.1-4.5); ALKALINE PHOSPHATASE 85 U/L (45-117); BUN 19 mg/dl (7-24); CHLORIDE 101 mmol/L (98-107); CREATININE 0.92 mg/dL (0.55-1.02); POTASSIUM 3.9 mmol/L (3.5-5.1); SGOT/AST 12 IU/L (3-35); SGPT/ALT 27 U/L (12-78); SODIUM 141 mmol/L (136-145); TOTAL PROTEIN 5.8 gm/dL (6.4-8.2)
[2018-03-07 06:33] LABS: ACT PARTIAL THROMBO TIME 20.7 SECONDS (20.8-31.5)
[2018-03-07 06:52] LABS: PLATELET SUFFICIENCY NORMAL (NORMAL); TOTAL CELLS COUNTED 100 #CELLS
[2018-03-07 08:00] VITALS: BP 119/69
[2018-03-07 12:00] VITALS: BP 110/61
[2018-03-07 16:00] VITALS: BP 134/63
[2018-03-07 20:00] VITALS: BP 122/67
[2018-03-08] VITALS: BP 120/51
[2018-03-08 06:25] LABS: HEMATOCRIT 43.4 % (37.0-47.0); HEMOGLOBIN 13.8 g/dl (12.0-16.0); MEAN CELL VOLUME 97.1 fl (81.0-99.0); MEAN CORPUSCULAR HGB 30.9 pg (27.0-31.0); MEAN CORPUSCULAR HGB CONC 31.8 g/dl (33.0-37.0); MEAN PLATELET VOLUME 10.1 fl (9.6-12.3); PLATELET COUNT AUTOMATED 284 10*3/uL (130-400); RED BLOOD COUNT 4.47 10*6/uL (4.10-5.10); RED CELL DISTRI WIDTH 13.6 % (0-14.5); WHITE BLOOD COUNT 15.3 10*3/uL (4.8-10.8)
[2018-03-08 06:52] LABS: ALBUMIN 2.6 gm/dl (3.1-4.5); ALKALINE PHOSPHATASE 84 U/L (45-117); BUN 23 mg/dl (7-24); CHLORIDE 102 mmol/L (98-107); CREATININE 0.98 mg/dL (0.55-1.02); POTASSIUM 3.9 mmol/L (3.5-5.1); SGOT/AST 13 IU/L (3-35); SGPT/ALT 26 U/L (12-78); SODIUM 141 mmol/L (136-145)
[2018-03-08 07:12] LABS: ATYPICAL LYMPHS 3 % (0-0); TOTAL CELLS COUNTED 100 #CELLS
[2018-03-08 07:13] LABS: PLATELET SUFFICIENCY NORMAL (NORMAL)
[2018-03-08 08:01] VITALS: BP 119/59
[2018-03-08 12:00] VITALS: BP 125/54
[2018-03-08 16:00] VITALS: BP 111/52
[2018-03-08 20:00] VITALS: BP 122/63
[2018-03-09] VITALS: BP 115/65
[2018-03-09 06:11] LABS: BUN 21 mg/dl (7-24); CHLORIDE 100 mmol/L (98-107); CREATININE 0.96 mg/dL (0.55-1.02); POTASSIUM 4.1 mmol/L (3.5-5.1); SODIUM 140 mmol/L (136-145)
[2018-03-09 08:00] VITALS: BP 129/67
[2018-03-09 12:00] VITALS: BP 131/65
[2018-03-09 16:00] VITALS: BP 136/73
[2018-03-09 20:00] VITALS: BP 104/46; BP 116/68
[2018-03-10] VITALS: BP 127/54
[2018-03-10 06:31] LABS: BUN 22 mg/dl (7-24); CHLORIDE 99 mmol/L (98-107); CREATININE 0.96 mg/dL (0.55-1.02); POTASSIUM 4.1 mmol/L (3.5-5.1); SODIUM 139 mmol/L (136-145)
[2018-03-10 08:00] VITALS: BP 108/72
[2018-03-10] MEDS ORDERED: PREDNISONE10 MG PO (11:51)
[2018-03-10] MEDS ORDERED: Diabeta,Micron2.5 MG PO (11:51)
[2018-03-10] MEDS ORDERED: DOXYCYCLINE100 M3 PO (11:51)
[2018-03-10 12:00] VITALS: BP 136/66
[2018-03-10] MEDS ORDERED: ALBUTEROL S5 MG/1 ML NEB (13:12)
[2018-03-10] MEDS ORDERED: IPRATROPIU0.2 MG/1 M NEB (13:12)
[2018-03-10] MEDS ORDERED: KLOR-CON M1010 ME1 PO (13:15)
== END 2018-03-10 14:00 | disposition home or self-care (01) | DRG 871 ==
LOC: ED 13:59 → EDHOLD 15:15 → 4E 15:15
PROVIDERS: Emergency Medicine; Internal Medicine; Student in an Organized Health Care Education/Training Program
PROC: BD1BYZZ Fluoroscopy of Mouth/Oropharynx using Other Contrast (ICD-10-PCS; principal; 2018-03-08)
DX: A41.9 Sepsis, unspecified organism (principal); J18.9 Pneumonia, unspecified organism; J96.00 Acute respiratory failure, unspecified whether with hypoxia or hypercapnia; I50.32 Chronic diastolic (congestive) heart failure; J44.1 Chronic obstructive pulmonary disease with (acute) exacerbation; J44.0 Chronic obstructive pulmonary disease with (acute) lower respiratory infection; Z68.42 Body mass index [BMI] 45.0-49.9, adult; R65.20 Severe sepsis without septic shock; K21.9 Gastro-esophageal reflux disease without esophagitis; E66.01 Morbid (severe) obesity due to excess calories; E55.9 Vitamin D deficiency, unspecified; J20.9 Acute bronchitis, unspecified; I11.0 Hypertensive heart disease with heart failure; F17.210 Nicotine dependence, cigarettes, uncomplicated; E11.8 Type 2 diabetes mellitus with unspecified complications; E78.5 Hyperlipidemia, unspecified; I25.10 Atherosclerotic heart disease of native coronary artery without angina pectoris; Z90.49 Acquired absence of other specified parts of digestive tract; Z95.5 Presence of coronary angioplasty implant and graft; Z80.1 Family history of malignant neoplasm of trachea, bronchus and lung; Z79.51 Long term (current) use of inhaled steroids; Z71.6 Tobacco abuse counseling; Z79.84 Long term (current) use of oral hypoglycemic drugs; Z79.899 Other long term (current) drug therapy; I25.2 Old myocardial infarction

== ENCOUNTER → 2018-03-22 | Outpatient (CLI) | payer MEDICARE ==
[~2018-03-22] MED LIST changes: +ALBUTEROL S5 MG/1 ML NEB; +CLINDAMYCIN150 MG PO; +DOXYCYCLINE100 M3 PO; +Diabeta,Micron2.5 MG PO; +IPRATROPIU0.2 MG/1 M NEB; +KLOR-CON M1010 ME1 PO
== END | disposition home or self-care (01) ==
LOC: RESCLI 01:28
DX: I11.0 Hypertensive heart disease with heart failure (principal); I50.32 Chronic diastolic (congestive) heart failure; J44.9 Chronic obstructive pulmonary disease, unspecified; E11.42 Type 2 diabetes mellitus with diabetic polyneuropathy; E78.5 Hyperlipidemia, unspecified; R60.0 Localized edema; E66.01 Morbid (severe) obesity due to excess calories; Z79.899 Other long term (current) drug therapy

== ENCOUNTER → 2018-03-30 | Outpatient (CLI) | payer MEDICARE ==
[2018-03-30 09:41] LABS: BASO % 0.4 % (0.0-1.0); EOS # 0.1 10*3/uL (0.0-0.4); EOS % 1.4 % (1.0-4.0); HEMATOCRIT 44.3 % (37.0-47.0); HEMOGLOBIN 14.5 g/dl (12.0-16.0); LYMPH # 2.6 10*3/uL (1.3-4.4); MEAN CELL VOLUME 93.9 fl (81.0-99.0); MEAN CORPUSCULAR HGB 30.7 pg (27.0-31.0); MEAN CORPUSCULAR HGB CONC 32.7 g/dl (33.0-37.0); MEAN PLATELET VOLUME 9.7 fl (9.6-12.3); MONO # 0.8 10*3/uL (0.1-1.0); NEUT # 6.5 10*3/uL (2.3-7.9); NEUT % 63.5 % (47.0-73.0); PLATELET COUNT AUTOMATED 250 10*3/uL (130-400); RED BLOOD COUNT 4.72 10*6/uL (4.10-5.10); RED CELL DISTRI WIDTH 13.8 % (0-14.5); WHITE BLOOD COUNT 10.3 10*3/uL (4.8-10.8)
[2018-03-30 10:12] LABS: BUN 27 mg/dl (7-24); CHLORIDE 104 mmol/L (98-107); CREATININE 1.09 mg/dL (0.55-1.02); SODIUM 142 mmol/L (136-145)
[2018-03-30 10:15] LABS: POTASSIUM 4.2 mmol/L (3.5-5.1)
== END | disposition home or self-care (01) ==
LOC: RESCLI 01:46
PROVIDERS: Internal Medicine
DX: I25.10 Atherosclerotic heart disease of native coronary artery without angina pectoris (principal); E11.42 Type 2 diabetes mellitus with diabetic polyneuropathy; J44.9 Chronic obstructive pulmonary disease, unspecified; I11.0 Hypertensive heart disease with heart failure; I50.32 Chronic diastolic (congestive) heart failure; E66.01 Morbid (severe) obesity due to excess calories; G62.9 Polyneuropathy, unspecified; E78.5 Hyperlipidemia, unspecified; E55.9 Vitamin D deficiency, unspecified; F17.200 Nicotine dependence, unspecified, uncomplicated; Z79.84 Long term (current) use of oral hypoglycemic drugs; Z63.4 Disappearance and death of family member; Z79.899 Other long term (current) drug therapy; Z79.82 Long term (current) use of aspirin

== ENCOUNTER 2018-04-23 19:24 | Emergency (ER) | payer MEDICARE ==
[~2018-04-23] VITALS: Ht 162.5 cm; Wt 96.2 kg
[~2018-04-23 19:24] MED LIST changes: -CLINDAMYCIN150 MG PO
[2018-04-23 19:27] VITALS: BP 116/87
[2018-04-23] MEDS ORDERED: CLINDAMYCIN150 MG PO (19:35)
== END 2018-04-23 19:52 | disposition home or self-care (01) ==
LOC: ED 19:24
DX: K04.7 Periapical abscess without sinus (principal); K02.9 Dental caries, unspecified; I11.0 Hypertensive heart disease with heart failure; I50.30 Unspecified diastolic (congestive) heart failure; I25.10 Atherosclerotic heart disease of native coronary artery without angina pectoris; J44.9 Chronic obstructive pulmonary disease, unspecified; K21.9 Gastro-esophageal reflux disease without esophagitis; E78.5 Hyperlipidemia, unspecified; E66.01 Morbid (severe) obesity due to excess calories; E11.9 Type 2 diabetes mellitus without complications; F17.200 Nicotine dependence, unspecified, uncomplicated; Z79.84 Long term (current) use of oral hypoglycemic drugs; Z79.899 Other long term (current) drug therapy; Z90.49 Acquired absence of other specified parts of digestive tract

== ENCOUNTER → 2018-06-07 | Outpatient (CLI) | payer MEDICARE ==
[~2018-06-07] MED LIST changes: +CLINDAMYCIN150 MG PO
--- NOTE | 2018-06-07 15:47 | NUR ---
6 MINUTE WALK: PT.'S O2 ON R.A. WAS 95% R.R. 20 B/P 125/82. PT.'S SPO2 DURING AMBULATIUON FOR 6 MINUTES NEVER DROPPED BELOW 90%. SHE WAS LABORED AND HAD AUDIBLE WHEEZES, BUT REMAINED ABOVE 90% THE WHOLE TIME. PT. WAS RETURNED TO THE CHAIR AND HER O2 RAJ TO 93%, R.R. 28, B/P 127/57. PT. APPEARED TO BE COMFORTABLE ASND IN NO DISTRESS DURING RECOVERY TIME.
== END | disposition home or self-care (01) ==
LOC: RESCLI 02:17
DX: I11.0 Hypertensive heart disease with heart failure (principal); I50.32 Chronic diastolic (congestive) heart failure; E11.42 Type 2 diabetes mellitus with diabetic polyneuropathy; J44.9 Chronic obstructive pulmonary disease, unspecified; E66.01 Morbid (severe) obesity due to excess calories; G62.9 Polyneuropathy, unspecified; I25.10 Atherosclerotic heart disease of native coronary artery without angina pectoris; E78.5 Hyperlipidemia, unspecified; E55.9 Vitamin D deficiency, unspecified; F17.210 Nicotine dependence, cigarettes, uncomplicated; Z79.84 Long term (current) use of oral hypoglycemic drugs; Z79.82 Long term (current) use of aspirin; Z79.899 Other long term (current) drug therapy

== ENCOUNTER → 2018-10-04 | Outpatient (CLI) | payer MEDICARE ==
[2018-10-04 10:41] LABS: BASO % 0.3 % (0.0-1.0); EOS # 0.4 10*3/uL (0.0-0.4); EOS % 3.6 % (1.0-4.0); HEMATOCRIT 48.6 % (37.0-47.0); HEMOGLOBIN 15.9 g/dl (12.0-16.0); LYMPH # 2.4 10*3/uL (1.3-4.4); LYMPH % 24.1 % (27.0-41.0); MEAN CELL VOLUME 95.5 fl (81.0-99.0); MEAN CORPUSCULAR HGB 31.2 pg (27.0-31.0); MEAN CORPUSCULAR HGB CONC 32.7 g/dl (33.0-37.0); MEAN PLATELET VOLUME 10.1 fl (9.6-12.3); MONO # 0.8 10*3/uL (0.1-1.0); MONO % 7.8 % (3.0-9.0); NEUT # 6.3 10*3/uL (2.3-7.9); NEUT % 63.7 % (47.0-73.0); PLATELET COUNT AUTOMATED 274 10*3/uL (130-400); RED BLOOD COUNT 5.09 10*6/uL (4.10-5.10); RED CELL DISTRI WIDTH 13.7 % (0-14.5); WHITE BLOOD COUNT 9.9 10*3/uL (4.8-10.8)
[2018-10-04 11:01] LABS: ALBUMIN 3.4 gm/dl (3.1-4.5); CREATININE 1.17 mg/dL (0.55-1.02); POTASSIUM 4.4 mmol/L (3.5-5.1)
== END | disposition home or self-care (01) ==
LOC: LAB 09:47
PROVIDERS: Internal Medicine
DX: E11.42 Type 2 diabetes mellitus with diabetic polyneuropathy (principal); E55.9 Vitamin D deficiency, unspecified

== ENCOUNTER → 2019-03-16 | Outpatient (CLI) | payer MEDICARE ==
[~2019-03-16] MED LIST changes: +HYDROXYZIN50 MG/25 M PO; +JANUVIA100 MG PO; +LEVAQUIN500 M2 PO; +LISINOPRIL10 M1 PO; +SPIRIVA18 MCG PO; +SUMATRIPTAN SUC50 M1 PO; +TOPAMAX25 M3 PO; +VITAMIN D5000 UNI1 PO
== END | disposition home or self-care (01) ==
LOC: RESCLI 01:12
DX: E11.42 Type 2 diabetes mellitus with diabetic polyneuropathy (principal); I11.0 Hypertensive heart disease with heart failure; I50.32 Chronic diastolic (congestive) heart failure; J44.9 Chronic obstructive pulmonary disease, unspecified; E78.5 Hyperlipidemia, unspecified; E66.01 Morbid (severe) obesity due to excess calories; G62.9 Polyneuropathy, unspecified; I25.10 Atherosclerotic heart disease of native coronary artery without angina pectoris; E55.9 Vitamin D deficiency, unspecified; J44.1 Chronic obstructive pulmonary disease with (acute) exacerbation; G43.019 Migraine without aura, intractable, without status migrainosus; F41.9 Anxiety disorder, unspecified; Z79.899 Other long term (current) drug therapy; Z88.8 Allergy status to other drugs, medicaments and biological substances

== ENCOUNTER 2019-03-27 19:49 | Inpatient (IN) | payer MEDICARE ==
[~2019-03-27] VITALS: Ht 162.5 cm; Wt 113.4 kg
--- NOTE | ~2019-03-27 | EKG ---
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1950 Requested By: ALANA MARIA Order Number: [id number] Reading MD: Beatrice Cobb Measurements Intervals [place] Rate: 81 P: 68 MN: 195 QRS: -44 QRSD: 116 T: 62 QT: 398 QTc: 462 Interpretive Statements Sinus rhythm Left anterior fascicular block Probable anteroseptal infarct, old Compared to ECG 03/06/2018 14:18:44 Left anterior fascicular block now present Myocardial infarct finding now present Intraventricular conduction delay no longer present Electronically Signed On 03-29-2019 9:35:03 PST by Beatrice Cobb CM:EKGRPT:ELECTROCARDIOGRAM REPORT [id number] ALANA MAY DRAFT REPORT ALANA MARIA DO
--- NOTE | ~2019-03-27 | EKG ---
[place], [place] ELECTROCARDIOGRAM REPORT NAME: GLORIA BENITO UNIT #: [id number] ROOM: 503 DOCTOR: LORETTA DRAFT REPORT BIRTHDATE: [birth year] [facility] Test Date: 2019-03-28 Test Time: 02:02:28 Pat Name: GLORIA BENITO Department: Room: 503 Gender: F Delivery Assistant: SS RESP : 1950 Requested By: ALANA MARIA Order Number: [id number] Reading MD: Beatrice Cobb Measurements Intervals [place] Rate: 81 P: 63 IN: 202 QRS: -42 QRSD: 117 T: 45 QT: 420 QTc: 488 Interpretive Statements Sinus rhythm Left anterior fascicular block Low voltage, precordial leads Consider anterior infarct Compared to ECG 03/06/2018 14:18:44 Left anterior fascicular block now present Low QRS voltage now present Myocardial infarct finding now present Intraventricular conduction delay no longer present Electronically Signed On 03-29-2019 9:37:22 PST by Beatrice Cobb CM:EKGRPT:ELECTROCARDIOGRAM REPORT [id number] 0937 ALANA MAY DRAFT REPORT ALANA MARIA DO
--- NOTE | ~2019-03-27 | EKG ---
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1950 Requested By: ALANA MARIA Order Number: [id number] Reading MD: Beatrice Cobb Measurements Intervals [place] Rate: 74 P: 44 OR: 198 QRS: -45 QRSD: 116 T: 55 QT: 424 QTc: 471 Interpretive Statements Sinus rhythm Left anterior fascicular block Low voltage, precordial leads Consider anterior infarct Compared to ECG 03/06/2018 14:18:44 Left anterior fascicular block now present Low QRS voltage now present Myocardial infarct finding now present Intraventricular conduction delay no longer present Electronically Signed On 03-29-2019 9:35:56 PST by Beatrice Cobb CM:EKGRPT:ELECTROCARDIOGRAM REPORT [id number] 0935 ALANA MAY DRAFT REPORT ALANA MARIA DO
[~2019-03-27 19:49] MED LIST changes: -HYDROXYZIN50 MG/25 M PO; -JANUVIA100 MG PO; -LEVAQUIN500 M2 PO; -LISINOPRIL10 M1 PO; -SPIRIVA18 MCG PO; -SUMATRIPTAN SUC50 M1 PO; -TOPAMAX25 M3 PO; -VITAMIN D5000 UNI1 PO
[2019-03-27 19:58] VITALS: BP 142/74
[2019-03-27 20:15] VITALS: BP 134/74
[2019-03-27 20:22] LABS: BASO % 0.5 % (0.0-1.0); EOS # 0.4 10*3/uL (0.0-0.4); EOS % 5.5 % (1.0-4.0); HEMATOCRIT 48.2 % (37.0-47.0); HEMOGLOBIN 15.3 g/dl (12.0-16.0); LYMPH # 1.9 10*3/uL (1.3-4.4); LYMPH % 24.1 % (27.0-41.0); MEAN CELL VOLUME 93.8 fl (81.0-99.0); MEAN CORPUSCULAR HGB 29.8 pg (27.0-31.0); MEAN CORPUSCULAR HGB CONC 31.7 g/dl (33.0-37.0); MEAN PLATELET VOLUME 10.2 fl (9.6-12.3); MONO # 0.7 10*3/uL (0.1-1.0); MONO % 8.7 % (3.0-9.0); NEUT # 4.9 10*3/uL (2.3-7.9); NEUT % 60.7 % (47.0-73.0); PLATELET COUNT AUTOMATED 273 10*3/uL (130-400); RED BLOOD COUNT 5.14 10*6/uL (4.10-5.10); RED CELL DISTRI WIDTH 14.8 % (0-14.5)
[2019-03-27 20:32] LABS: ACT PARTIAL THROMBO TIME 26.6 SECONDS (20.0-32.1)
[2019-03-27 20:45] LABS: ALBUMIN 3.6 gm/dl (3.1-4.5); CREATININE 1.15 mg/dL (0.55-1.02); POTASSIUM 4.1 mmol/L (3.5-5.1); TROPONIN I 0.034 ng/ml (<0.045)
[2019-03-27 21:39] VITALS: BP 109/78
[2019-03-27 22:21] VITALS: BP 100/75
[2019-03-27 23:40] VITALS: BP 133/64
[2019-03-28] VITALS (10 sets, daily range): BP systolic 104–144; BP diastolic 53–92
--- NOTE | 2019-03-28 03:28 | NUR ---
REPORT TO EDWIN VERDUZCO
--- NOTE | 2019-03-28 07:08 | NUR ---
REPORT RECIEVED FROM EDWIN VERDUZCO
--- NOTE | 2019-03-28 07:29 | NUR ---
AWAITING UPDATED LABS BEFORE ADMINISTERING HUMALOG
--- NOTE | 2019-03-28 07:59 | NUR ---
RESIDENT IN WITH PATIENT STILL AWAITING UPDATED LABS LAST BGL 263 K+ 2.3
--- NOTE | 2019-03-28 09:26 | NUR ---
OUT OF [facility] WILL BRING SOME DOWN
--- NOTE | 2019-03-28 09:32 | NUR ---
PT IN BED SITTING ON BEDSIDE OFFERED WARM BLANKET PT ACCEPTED BED IN LOWEST POSITION CALL LIGHT IN REACH
--- NOTE | 2019-03-28 10:29 | NUR ---
UNABLE TO UPDATE MED REC PATIENT NOT SURE OF HOME MEDICATIONS. WILL NEED TO CALL PHARMACY.
--- NOTE | 2019-03-28 11:40 | NUR ---
PT RESTING IN BED NO SIGN OF DISTRESS PT WATCHING TV NEPHEW AT BEDSIDE AWAITING ROOM FOR ADMISSION
[2019-03-28] MEDS ORDERED: JANUVIA100 MG PO (12:45)
[2019-03-28] MEDS ORDERED: LISINOPRIL10 M1 PO (12:46)
[2019-03-28] MEDS ORDERED: SPIRIVA18 MCG PO (12:49)
[2019-03-28] MEDS ORDERED: PROAIR HFA8.5 GM INH (12:50)
[2019-03-28] MEDS ORDERED: TOPAMAX25 M3 PO (12:51)
[2019-03-28] MEDS ORDERED: HYDROXYZIN50 MG/25 M PO (12:52)
[2019-03-28] MEDS ORDERED: SUMATRIPTAN SUC50 M1 PO (12:52)
[2019-03-29] VITALS: BP 137/71
[2019-03-29 06:32] LABS: BUN 20 mg/dl (7-24); CHLORIDE 103 mmol/L (98-107); CREATININE 1.09 mg/dL (0.55-1.02); POTASSIUM 4.8 mmol/L (3.5-5.1); SODIUM 138 mmol/L (136-145)
[2019-03-29 06:35] LABS: CHOLESTEROL 143 mg/dL (<200); HDL CHOLESTEROL 38 mg/dl (40-60); LDL CHOLESTEROL 89 mg/dL (9-159); PHOSPHOROUS 3.7 mg/dL (2.5-4.9); TRIGLYCERIDES 80 mg/dl (<150); VLDL CHOLESTEROL 16 mg/dL (6-40)
[2019-03-29 06:53] LABS: HEMATOCRIT 46.5 % (37.0-47.0); HEMOGLOBIN 14.4 g/dl (12.0-16.0); MEAN CELL VOLUME 94.5 fl (81.0-99.0); MEAN CORPUSCULAR HGB 29.3 pg (27.0-31.0); MEAN PLATELET VOLUME 10.4 fl (9.6-12.3); PLATELET COUNT AUTOMATED 276 10*3/uL (130-400); RED BLOOD COUNT 4.92 10*6/uL (4.10-5.10); RED CELL DISTRI WIDTH 14.6 % (0-14.5); WHITE BLOOD COUNT 14.1 10*3/uL (4.8-10.8)
[2019-03-29 07:49] LABS: VITAMIN D, 25-HYDROXY 12.4 ng/mL (30-100)
[2019-03-29 08:00] VITALS: BP 125/58
[2019-03-29 08:07] LABS: PLATELET SUFFICIENCY NORMAL (NORMAL); TOTAL CELLS COUNTED 100 #CELLS
--- NOTE | 2019-03-29 09:00 | NUR ---
General Office Associate in to talk to patient. Patient states lives at home with son. There are few steps in the home. Physician: [facility] Pharmacy: [facility] Home health services: none Patient's level of ADLs: INDEPENDENT Patient has working utilities: all working DME: oxygen, portable tanks, nebulzier Follow-up physician's appointment after d/c: will be made by hospitalist nurse director upon discharge Does patient want to access PORTAL?: no Discharge plan discussed with patient, she lives at home with her son, states she is independent in adls and ambulation, has home oxygen, portable tanks and a nebulizer, she stated she will return home when medically stable, discussed with her VNA and she declines any services at this time, case management will follow. SHAYNA VELASCO
[2019-03-29 12:00] VITALS: BP 136/67
[2019-03-29 16:00] VITALS: BP 111/50
[2019-03-29 20:00] VITALS: BP 132/79
[2019-03-30] VITALS: BP 116/60
--- NOTE | 2019-03-30 05:34 | NUR ---
PATIENT RESTING IN BED WITH EYES CLOSED AT THIS TIME, NO SIGNS OR SYMPTOMS OF DISTRESS SEEN. CALL LIGHT WITHIN REACH. RN WILL CONTINUE TO MONITOR
[2019-03-30 08:00] VITALS: BP 137/79
--- NOTE | 2019-03-30 09:00 | NUR ---
case management visits with patient, she states she is possibly being discharged to home today, denies any home needs at this time
[2019-03-30] MEDS ORDERED: PREDNISONE10 MG PO (11:11)
[2019-03-30] MEDS ORDERED: VITAMIN D5000 UNI1 PO (11:11)
[2019-03-30] MEDS ORDERED: LEVAQUIN500 M2 PO (11:11)
--- NOTE | 2019-03-30 12:34 | NUR ---
Discharge instructions reviewed with patient/family. Patient receptive and verbalizes understanding. Follow-up care arranged. Written instructions given to patient/family. DELILAH RING
--- NOTE | 2019-03-30 13:04 | NUR ---
PT DISCHARGED AT THIS TIME WITH NEPHEW TO HOME.
== END 2019-03-30 12:34 | disposition home or self-care (01) | DRG 291 ==
LOC: ED 19:49 → 5E 23:41 → EDHOLD 23:41 → 5E 03-28 12:48
PROVIDERS: Emergency Medicine; Student in an Organized Health Care Education/Training Program; ADMIT Family Medicine
DX: I13.0 Hypertensive heart and chronic kidney disease with heart failure and stage 1 through stage 4 chronic kidney disease, or unspecified chronic kidney disease (principal); J18.9 Pneumonia, unspecified organism; I50.33 Acute on chronic diastolic (congestive) heart failure; J44.1 Chronic obstructive pulmonary disease with (acute) exacerbation; E44.0 Moderate protein-calorie malnutrition; J44.0 Chronic obstructive pulmonary disease with (acute) lower respiratory infection; Z68.42 Body mass index [BMI] 45.0-49.9, adult; E55.9 Vitamin D deficiency, unspecified; E11.40 Type 2 diabetes mellitus with diabetic neuropathy, unspecified; D75.1 Secondary polycythemia; E87.8 Other disorders of electrolyte and fluid balance, not elsewhere classified; N18.3 Chronic kidney disease, stage 3 (moderate); F17.210 Nicotine dependence, cigarettes, uncomplicated; E11.22 Type 2 diabetes mellitus with diabetic chronic kidney disease; E11.65 Type 2 diabetes mellitus with hyperglycemia; I25.10 Atherosclerotic heart disease of native coronary artery without angina pectoris; K21.9 Gastro-esophageal reflux disease without esophagitis; E78.5 Hyperlipidemia, unspecified; E66.01 Morbid (severe) obesity due to excess calories; Z95.5 Presence of coronary angioplasty implant and graft; Z90.49 Acquired absence of other specified parts of digestive tract; Z82.49 Family history of ischemic heart disease and other diseases of the circulatory system; Z80.1 Family history of malignant neoplasm of trachea, bronchus and lung; Z71.6 Tobacco abuse counseling

== ENCOUNTER → 2019-04-06 | Outpatient (CLI) | payer MEDICARE ==
[~2019-04-06] MED LIST changes: +HYDROXYZIN50 MG/25 M PO; +JANUVIA100 MG PO; +LEVAQUIN500 M2 PO; +LISINOPRIL10 M1 PO; +SPIRIVA18 MCG PO; +SUMATRIPTAN SUC50 M1 PO; +TOPAMAX25 M3 PO; +VITAMIN D5000 UNI1 PO
== END | disposition home or self-care (01) ==
LOC: RESCLI 01:10
DX: I13.0 Hypertensive heart and chronic kidney disease with heart failure and stage 1 through stage 4 chronic kidney disease, or unspecified chronic kidney disease (principal); E11.22 Type 2 diabetes mellitus with diabetic chronic kidney disease; I50.32 Chronic diastolic (congestive) heart failure; N18.9 Chronic kidney disease, unspecified; E11.42 Type 2 diabetes mellitus with diabetic polyneuropathy; J44.9 Chronic obstructive pulmonary disease, unspecified; E78.5 Hyperlipidemia, unspecified; E66.01 Morbid (severe) obesity due to excess calories; I25.10 Atherosclerotic heart disease of native coronary artery without angina pectoris; E55.9 Vitamin D deficiency, unspecified; F41.9 Anxiety disorder, unspecified; G43.909 Migraine, unspecified, not intractable, without status migrainosus; Z72.0 Tobacco use; Z71.6 Tobacco abuse counseling; Z79.899 Other long term (current) drug therapy

== ENCOUNTER → 2019-06-15 | Outpatient (CLI) | payer MEDICARE | END | disposition home or self-care (01) | LOC: RESCLI 00:47 | DX: E11.42 Type 2 diabetes mellitus with diabetic polyneuropathy (principal); I13.0 Hypertensive heart and chronic kidney disease with heart failure and stage 1 through stage 4 chronic kidney disease, or unspecified chronic kidney disease; E11.22 Type 2 diabetes mellitus with diabetic chronic kidney disease; N18.9 Chronic kidney disease, unspecified; I50.32 Chronic diastolic (congestive) heart failure; E78.5 Hyperlipidemia, unspecified; J44.9 Chronic obstructive pulmonary disease, unspecified; E66.01 Morbid (severe) obesity due to excess calories; G62.9 Polyneuropathy, unspecified; I25.10 Atherosclerotic heart disease of native coronary artery without angina pectoris; E55.9 Vitamin D deficiency, unspecified; F41.9 Anxiety disorder, unspecified; G43.909 Migraine, unspecified, not intractable, without status migrainosus; Z72.0 Tobacco use; Z71.6 Tobacco abuse counseling; Z90.49 Acquired absence of other specified parts of digestive tract; Z90.89 Acquired absence of other organs; Z79.899 Other long term (current) drug therapy ==

== ENCOUNTER → 2019-07-24 | Outpatient (CLI) | payer MEDICARE ==
[2019-07-24 11:37] LABS: BASO % 0.5 % (0.0-1.0); EOS # 0.4 10*3/uL (0.0-0.4); EOS % 4.3 % (1.0-4.0); HEMATOCRIT 46.7 % (37.0-47.0); HEMOGLOBIN 14.3 g/dl (12.0-16.0); LYMPH # 2.1 10*3/uL (1.3-4.4); LYMPH % 24.2 % (27.0-41.0); MEAN CORPUSCULAR HGB 30.6 pg (27.0-31.0); MEAN CORPUSCULAR HGB CONC 30.6 g/dl (33.0-37.0); MEAN PLATELET VOLUME 9.5 fl (9.6-12.3); MONO # 0.8 10*3/uL (0.1-1.0); MONO % 8.8 % (3.0-9.0); NEUT # 5.3 10*3/uL (2.3-7.9); NEUT % 61.7 % (47.0-73.0); PLATELET COUNT AUTOMATED 296 10*3/uL (130-400); RED BLOOD COUNT 4.67 10*6/uL (4.10-5.10); RED CELL DISTRI WIDTH 14.4 % (0-14.5); WHITE BLOOD COUNT 8.5 10*3/uL (4.8-10.8)
[2019-07-24 12:08] LABS: ALBUMIN 3.3 gm/dl (3.1-4.5); CREATININE 1.25 mg/dL (0.55-1.02)
[2019-07-24 12:19] LABS: TOTAL PROTEIN 6.8 gm/dL (6.4-8.2)
[2019-07-24 13:04] LABS: VITAMIN D, 25-HYDROXY 16.1 ng/mL (30-100)
== END | disposition home or self-care (01) ==
LOC: LAB 11:13
PROVIDERS: Student in an Organized Health Care Education/Training Program
DX: E11.42 Type 2 diabetes mellitus with diabetic polyneuropathy (principal); I10 Essential (primary) hypertension; E78.5 Hyperlipidemia, unspecified; E55.9 Vitamin D deficiency, unspecified

== ENCOUNTER 2020-01-15 19:53 | Inpatient (IN) | payer MEDICARE ==
[2020-01-15] VITALS (7 sets, daily range): BP systolic 130–148; BP diastolic 62–87
[~2020-01-15] VITALS: Ht 162.5 cm; Wt 119.1 kg
[2020-01-15 20:13] LABS: BASO % 0.4 % (0.0-1.0); EOS # 0.5 10*3/uL (0.0-0.4); EOS % 6.4 % (1.0-4.0); LYMPH # 1.8 10*3/uL (1.3-4.4); LYMPH % 23.3 % (27.0-41.0); MEAN CELL VOLUME 94.3 fl (81.0-99.0); MEAN CORPUSCULAR HGB 29.7 pg (27.0-31.0); MEAN CORPUSCULAR HGB CONC 31.5 g/dl (33.0-37.0); MEAN PLATELET VOLUME 9.2 fl (9.6-12.3); MONO # 0.6 10*3/uL (0.1-1.0); MONO % 7.4 % (3.0-9.0); NEUT # 4.7 10*3/uL (2.3-7.9); PLATELET COUNT AUTOMATED 274 10*3/uL (130-400); RED BLOOD COUNT 4.88 10*6/uL (4.10-5.10); RED CELL DISTRI WIDTH 13.9 % (0-14.5); WHITE BLOOD COUNT 7.5 10*3/uL (4.8-10.8)
[2020-01-15 20:26] LABS: ACT PARTIAL THROMBO TIME 33.3 SECONDS (20.0-32.1)
[2020-01-15 20:32] LABS: ALBUMIN 3.2 gm/dl (3.1-4.5); ALKALINE PHOSPHATASE 106 U/L (45-117); BUN 12 mg/dl (7-24); CHLORIDE 107 mmol/L (98-107); CREATININE 1.08 mg/dL (0.55-1.02); SGOT/AST 11 IU/L (3-35); SGPT/ALT 29 U/L (12-78); SODIUM 141 mmol/L (136-145); TOTAL PROTEIN 6.7 gm/dL (6.4-8.2)
[2020-01-15 20:37] LABS: TROPONIN I < 0.015 ng/ml (<0.045)
--- NOTE | 2020-01-15 22:30 | NUR ---
2L NC O2 PLACED PER VO DR MONTOYA
[2020-01-15] MEDS ORDERED: VITAMIN D3125 MCG PO (23:32)
--- NOTE | 2020-01-15 23:34 | NUR ---
MED REC IS UP TO DATE PER PT RECALL. PT IS A&OX3, BUT UNSURE OF SOME MEDICATIONS LISTED. USES [facility]. WILL VERIFY MEDS IN AM WHEN IN HOUSE PHARMACY RETURNS.
[2020-01-16 02:03] LABS: BASO % 0.3 % (0.0-1.0); EOS # 0.1 10*3/uL (0.0-0.4); EOS % 1.3 % (1.0-4.0); LYMPH # 0.9 10*3/uL (1.3-4.4); LYMPH % 9.3 % (27.0-41.0); MEAN CELL VOLUME 94.1 fl (81.0-99.0); MEAN CORPUSCULAR HGB 29.6 pg (27.0-31.0); MEAN CORPUSCULAR HGB CONC 31.5 g/dl (33.0-37.0); MEAN PLATELET VOLUME 9.4 fl (9.6-12.3); MONO # 0.2 10*3/uL (0.1-1.0); MONO % 2.2 % (3.0-9.0); NEUT # 8.6 10*3/uL (2.3-7.9); NEUT % 86.4 % (47.0-73.0); PLATELET COUNT AUTOMATED 295 10*3/uL (130-400); RED CELL DISTRI WIDTH 13.9 % (0-14.5)
[2020-01-16 02:16] LABS: BUN 18 mg/dl (7-24); CHLORIDE 104 mmol/L (98-107); CREATININE 1.03 mg/dL (0.55-1.02); POTASSIUM 3.9 mmol/L (3.5-5.1); SODIUM 140 mmol/L (136-145)
--- NOTE | 2020-01-16 03:44 | NUR ---
PT ASLEEP IN BED. EASILY AROUSABLE. DENIES ANY NEEDS. WILL MONITOR. CALL LIGHT IN REACH.
[2020-01-16 06:30] VITALS: BP 138/86
[2020-01-16 08:00] VITALS: BP 144/80
--- NOTE | 2020-01-16 09:00 | NUR ---
Compliance Spec in to talk to patient. Patient states lives at home with son. There are none steps in the home. Physician: [facility] Pharmacy: [facility] Home health services: none Patient's level of ADLs: INDEPENDENT Patient has working utilities: all working DME: nebulizer Follow-up physician's appointment after d/c: will be made by hospitalist nurse director upon discharge Does patient want to access PORTAL?: no Discharge plan discussed with patient, she states she lives at home with her son, she is independent in adls and ambulation she states she has a nebulizerm used to ahve home oxygen but sent it back to the supplier. she felt she didn't need it and didn't wear it. she states she will return home when discharged and denies any home needs SHAYNA VELASCO
--- NOTE | 2020-01-16 11:20 | NUR ---
PT. UNAVAILABLE HAVING BEDSIDE ECHO AT THIS TIME.
[2020-01-16 12:00] VITALS: BP 147/84
--- NOTE | 2020-01-16 12:30 | NUR ---
MED REC UPDATED WITH LIST FROM OP PHARM AT [facility].
--- NOTE | 2020-01-16 13:30 | NUR ---
Patient resting quietly with no c/o discomfort. Respirations easy and regular. Vital signs stable. No overt distress. REHANA SHINE R
[2020-01-16 16:00] VITALS: BP 132/47
[2020-01-16 20:00] VITALS: BP 131/66
[2020-01-17] VITALS: BP 130/73
--- NOTE | 2020-01-17 01:31 | NUR ---
WARM BLANKETS PROVIDED PER REQUEST. PT DENIES ANY NEEDS AT PRESENT TIME. WILL MONITOR. CALL LIGHT IN REACH.
[2020-01-17 05:50] VITALS: BP 112/52
--- NOTE | 2020-01-17 06:00 | NUR ---
IV LASIX GIVEN SLOWLY PER ORDER. PT STATES HER BREATHING HAS IMPROVED. ALSO STATES SHE DOES NOT WEAR O2 AT HOME. POX 94% AND ABOVE ON 2L NC. O2 TITRATED TO 1L NC. POX REMAINS 92% AND ABOVE ON 1L. WILL MONITOR. PT ENCOURAGED TO USE CALL LIGHT IF SHE BECOMES SOB. STAFF AGAIN OFFERED TO SET PATIENT UP FOR SHOWER. PT STATES "NOT RIGHT NOW."
[2020-01-17 06:36] LABS: BASO % 0.1 % (0.0-1.0); HEMATOCRIT 45.7 % (37.0-47.0); LYMPH % 8.2 % (27.0-41.0); MEAN CELL VOLUME 94.2 fl (81.0-99.0); MEAN CORPUSCULAR HGB 29.7 pg (27.0-31.0); MEAN CORPUSCULAR HGB CONC 31.5 g/dl (33.0-37.0); MEAN PLATELET VOLUME 9.8 fl (9.6-12.3); MONO # 0.9 10*3/uL (0.1-1.0); MONO % 6.8 % (3.0-9.0); NEUT # 10.7 10*3/uL (2.3-7.9); NEUT % 84.3 % (47.0-73.0); PLATELET COUNT AUTOMATED 323 10*3/uL (130-400); RED BLOOD COUNT 4.85 10*6/uL (4.10-5.10); RED CELL DISTRI WIDTH 13.7 % (0-14.5); WHITE BLOOD COUNT 12.7 10*3/uL (4.8-10.8)
[2020-01-17 07:07] LABS: BUN 22 mg/dl (7-24); CHLORIDE 103 mmol/L (98-107); CREATININE 0.98 mg/dL (0.55-1.02); POTASSIUM 3.8 mmol/L (3.5-5.1); SODIUM 141 mmol/L (136-145)
--- NOTE | 2020-01-17 07:43 | NUR ---
ASSESSMENT COMPLETE AT THIS TIME WITHOUT INCIDENCE. PT IS SLEEPING BUT AWAKENS EASILY. SHE IS ON 3L NC, NONDEPENDENT. PT DENIES ANY SOB OR CHEST PAIN AT THIS TIME. RESPIRATIONS ARE RELAXED AND REGULAR. CALL LIGHT IS WITHIN REACH, WILL CONTINUE TO MONITOR
[2020-01-17 08:00] VITALS: BP 128/66
--- NOTE | 2020-01-17 09:00 | NUR ---
case management visits with patient, discussed with her a discharge plan including VNA, educated her on the services they provide, she stated she was familiar with VNA but didn't want any services at home when she was discharged., case management will follow
--- NOTE | 2020-01-17 09:35 | NUR ---
PRN TYLENOL PO GIVEN FOR COMPLAINTS OF HEADACHE. WILL MONITOR FOR EFFECTIVENESS, CALL LIGHT WITHIN REACH
--- NOTE | 2020-01-17 10:30 | NUR ---
PT STATES TYLENOL EFFECTIVE
--- NOTE | 2020-01-17 10:32 | NUR ---
FRUIT PACKER received patient clinical information. FRUIT PACKER spoke with RN Hospitalist Coordinator Jaclyn about a this patient recieving a Pysch Consult. Messenger Copy has been informed.
[2020-01-17 12:00] VITALS: BP 105/66
[2020-01-17 16:00] VITALS: BP 113/54
[2020-01-17 20:00] VITALS: BP 121/61
[2020-01-18] VITALS: BP 121/67
[2020-01-18 06:27] LABS: BUN 27 mg/dl (7-24); CHLORIDE 100 mmol/L (98-107); CREATININE 1.09 mg/dL (0.55-1.02); SODIUM 140 mmol/L (136-145)
[2020-01-18 08:00] VITALS: BP 120/54
--- NOTE | 2020-01-18 09:00 | NUR ---
case management visits with patient, again discused with her a short term care home for rehab 5 days a week and 24 hour care short term, she declined, stated she was returning home when discharged. also discussed with her VNA and educated her on the services they provide, she also declined this, stated she did want any home services, case management will follow
--- NOTE | 2020-01-18 10:39 | NUR ---
ASSEMBLER BILLIARD TABLE MADE REFERRAL TO APS.
[2020-01-18] MEDS ORDERED: PREDNISONE10 MG PO (11:51)
[2020-01-18] MEDS ORDERED: FUROSEMIDE20 M1 PO (11:51)
[2020-01-18] MEDS ORDERED: DOXYCYCLINE100 M3 PO (11:51)
[2020-01-18] MEDS ORDERED: POTASSIUM CHLO10 ME5 PO (11:51)
[2020-01-18 12:00] VITALS: BP 118/70
--- NOTE | 2020-01-18 12:28 | NUR ---
HOME O2 ASSESSMENT ROOM AIR AT REST: BP 120/38 SPO2 86% HR 68 O2 2L NC AT REST: SPO2 88% HR 64 O2 3L NC AT REST: SPO2 92% HR 70 O2 3L NC WITH AMBULATION: SPO2 92% HR 78 O2 3L NC RECOVERY: SPO2 93% HR 67 BP 121/64 PT. REQUIRED 3L O2 AT REST AND DURING AMBULATION TO KEEP SPO2 >= TO 88%. RN NOTIFIED.
[2020-01-18] MEDS ORDERED: OXYGEN NAS (14:32)
[2020-01-18] MEDS ORDERED: NEURONTIN600 MG PO (14:55)
--- NOTE | 2020-01-18 15:06 | NUR ---
Patient order and referral faxed to [facility] for home health. Notified patient will discharge home today.
[2020-01-18] MEDS ORDERED: JANUVIA100 MG PO (15:23)
[2020-01-18 15:27] VITALS: BP 118/70
--- NOTE | 2020-01-18 15:28 | NUR ---
[facility] Discharge instructions reviewed with patient/family. Patient receptive and verbalizes understanding. Follow-up care arranged. Written instructions given to patient/family. HERNÁN WILLIS
--- NOTE | 2020-01-18 15:35 | NUR ---
PT DID NOT WANT TO STOP AT [facility] TO COLOR GRINDER HER NEDICATION OR WAIT UNTIL WE COULD FIGURE OUT WHERE HER O2 SCRIPT WAS. PT STATED SHE CALLED FOR A RIDS, AND WANTED TAKEN OUTSIDE.
--- NOTE | 2020-01-18 15:53 | NUR ---
[facility] CALLED WITH ORDER FOR HOME O2. FAXED O2 SCRIPT, PULSE OX RESULTS, AND DEMONGRAPHICS.
== END 2020-01-18 15:37 | disposition home health service (06) | DRG 177 ==
LOC: ED 19:53 → EDHOLD 22:18 → 5E 22:18
PROVIDERS: Nurse Practitioner Family; Student in an Organized Health Care Education/Training Program; ADMIT Internal Medicine; ATTEND Internal Medicine
DX: J69.0 Pneumonitis due to inhalation of food and vomit (principal); I50.33 Acute on chronic diastolic (congestive) heart failure; I13.0 Hypertensive heart and chronic kidney disease with heart failure and stage 1 through stage 4 chronic kidney disease, or unspecified chronic kidney disease; J44.1 Chronic obstructive pulmonary disease with (acute) exacerbation; E44.0 Moderate protein-calorie malnutrition; J44.0 Chronic obstructive pulmonary disease with (acute) lower respiratory infection; Z68.42 Body mass index [BMI] 45.0-49.9, adult; K21.9 Gastro-esophageal reflux disease without esophagitis; E11.65 Type 2 diabetes mellitus with hyperglycemia; E11.22 Type 2 diabetes mellitus with diabetic chronic kidney disease; N18.3 Chronic kidney disease, stage 3 (moderate); I25.10 Atherosclerotic heart disease of native coronary artery without angina pectoris; E78.5 Hyperlipidemia, unspecified; E66.01 Morbid (severe) obesity due to excess calories; E11.40 Type 2 diabetes mellitus with diabetic neuropathy, unspecified; F17.210 Nicotine dependence, cigarettes, uncomplicated; E55.9 Vitamin D deficiency, unspecified; Z95.5 Presence of coronary angioplasty implant and graft; Z90.49 Acquired absence of other specified parts of digestive tract; Z80.1 Family history of malignant neoplasm of trachea, bronchus and lung; Z91.14 Patient's other noncompliance with medication regimen; Z79.4 Long term (current) use of insulin; Z71.6 Tobacco abuse counseling

== ENCOUNTER → 2020-02-15 | Outpatient (CLI) | payer MEDICARE ==
[~2020-02-15] MED LIST changes: +VITAMIN D3125 MCG PO
== END | disposition home or self-care (01) ==
LOC: RESCLI 01:25
PROVIDERS: ATTEND Internal Medicine Nephrology
DX: J44.9 Chronic obstructive pulmonary disease, unspecified (principal); I11.0 Hypertensive heart disease with heart failure; I50.32 Chronic diastolic (congestive) heart failure; E11.42 Type 2 diabetes mellitus with diabetic polyneuropathy; E78.5 Hyperlipidemia, unspecified; G62.9 Polyneuropathy, unspecified; I25.10 Atherosclerotic heart disease of native coronary artery without angina pectoris; G43.019 Migraine without aura, intractable, without status migrainosus; F41.9 Anxiety disorder, unspecified; E55.9 Vitamin D deficiency, unspecified; F17.200 Nicotine dependence, unspecified, uncomplicated; Z79.899 Other long term (current) drug therapy; Z79.82 Long term (current) use of aspirin; Z90.49 Acquired absence of other specified parts of digestive tract; Z95.828 Presence of other vascular implants and grafts; Z98.890 Other specified postprocedural states

== ENCOUNTER 2020-04-20 18:39 | Emergency (ER) | payer OTHER ==
[2020-04-20 19:16] LABS: BASO # 0.1 10*3/uL (0.0-0.1); BASO % 0.6 % (0.0-1.0); EOS # 0.4 10*3/uL (0.0-0.4); EOS % 4.2 % (1.0-4.0); HEMATOCRIT 45.5 % (37.0-47.0); LYMPH # 2.2 10*3/uL (1.3-4.4); LYMPH % 25.6 % (27.0-41.0); MEAN CELL VOLUME 98.1 fl (81.0-99.0); MEAN CORPUSCULAR HGB 30.6 pg (27.0-31.0); MEAN CORPUSCULAR HGB CONC 31.2 g/dl (33.0-37.0); MEAN PLATELET VOLUME 9.4 fl (9.6-12.3); MONO # 0.7 10*3/uL (0.1-1.0); MONO % 7.7 % (3.0-9.0); NEUT # 5.2 10*3/uL (2.3-7.9); NEUT % 61.2 % (47.0-73.0); PLATELET COUNT AUTOMATED 303 10*3/uL (130-400); RED BLOOD COUNT 4.64 10*6/uL (4.10-5.10); WHITE BLOOD COUNT 8.5 10*3/uL (4.8-10.8)
[2020-04-20 19:29] LABS: ACT PARTIAL THROMBO TIME 28.8 SECONDS (20.0-32.1)
[2020-04-20 19:33] LABS: ALBUMIN 3.2 gm/dl (3.1-4.5); CREATININE 1.42 mg/dL (0.55-1.02); POTASSIUM 4.1 mmol/L (3.5-5.1); TOTAL PROTEIN 6.6 gm/dL (6.4-8.2)
[2020-04-20 19:34] LABS: TROPONIN I 0.017 ng/ml (<0.045)
[2020-04-20 22:26] VITALS: BP 116/62
[2020-04-21] MEDS ORDERED: ZITHROMAX250 MG PO (01:02)
[2020-04-21] MEDS ORDERED: PREDNISONE10 MG PO (01:02)
== END 2020-04-21 01:28 | disposition home or self-care (01) ==
LOC: ED 18:39
PROVIDERS: Emergency Medicine
DX: J44.9 Chronic obstructive pulmonary disease, unspecified (principal); M75.52 Bursitis of left shoulder; Z79.899 Other long term (current) drug therapy

== ENCOUNTER → 2020-05-10 | Outpatient (CLI) | payer OTHER ==
[~2020-05-10] MED LIST changes: +ZITHROMAX250 MG PO
== END | disposition home or self-care (01) ==
LOC: RESCLI 00:30
PROVIDERS: ATTEND Student in an Organized Health Care Education/Training Program
DX: E11.42 Type 2 diabetes mellitus with diabetic polyneuropathy (principal); J44.9 Chronic obstructive pulmonary disease, unspecified; E11.22 Type 2 diabetes mellitus with diabetic chronic kidney disease; I13.0 Hypertensive heart and chronic kidney disease with heart failure and stage 1 through stage 4 chronic kidney disease, or unspecified chronic kidney disease; N18.9 Chronic kidney disease, unspecified; I50.32 Chronic diastolic (congestive) heart failure; E78.5 Hyperlipidemia, unspecified; E66.01 Morbid (severe) obesity due to excess calories; G62.9 Polyneuropathy, unspecified; I25.10 Atherosclerotic heart disease of native coronary artery without angina pectoris; E55.9 Vitamin D deficiency, unspecified; F41.9 Anxiety disorder, unspecified; G89.29 Other chronic pain

== ENCOUNTER 2020-05-28 12:22 | Emergency (ER) | payer OTHER ==
[~2020-05-28] VITALS: Wt 90.7 kg
[2020-05-28 12:33] VITALS: BP 121/81
== END 2020-05-28 15:40 | disposition left against medical advice (07) ==
LOC: ED 12:22
DX: R06.00 Dyspnea, unspecified (principal); Z53.21 Procedure and treatment not carried out due to patient leaving prior to being seen by health care provider

== ENCOUNTER 2020-08-14 13:03 | Observation (INO) | payer OTHER ==
[~2020-08-14] VITALS: Ht 162.6 cm; Wt 129.8 kg
[2020-08-14 13:07] VITALS: BP 147/83
[2020-08-14 14:01] LABS: BASO # 0.1 10*3/uL (0.0-0.1); BASO % 0.6 % (0.0-1.0); EOS # 0.2 10*3/uL (0.0-0.4); EOS % 2.6 % (1.0-4.0); HEMATOCRIT 43.5 % (37.0-47.0); LYMPH # 1.6 10*3/uL (1.3-4.4); MEAN CELL VOLUME 95.2 fl (81.0-99.0); MEAN CORPUSCULAR HGB 30.2 pg (27.0-31.0); MEAN CORPUSCULAR HGB CONC 31.7 g/dl (33.0-37.0); MEAN PLATELET VOLUME 9.4 fl (9.6-12.3); MONO # 0.7 10*3/uL (0.1-1.0); MONO % 8.4 % (3.0-9.0); NEUT # 5.9 10*3/uL (2.3-7.9); NEUT % 68.8 % (47.0-73.0); PLATELET COUNT AUTOMATED 281 10*3/uL (130-400); RED BLOOD COUNT 4.57 10*6/uL (4.10-5.10); RED CELL DISTRI WIDTH 13.3 % (0-14.5); WHITE BLOOD COUNT 8.6 10*3/uL (4.8-10.8)
[2020-08-14 14:13] LABS: ACT PARTIAL THROMBO TIME 27.9 SECONDS (20.0-32.1)
[2020-08-14 14:19] LABS: ALBUMIN 3.1 gm/dl (3.1-4.5); ALKALINE PHOSPHATASE 100 U/L (45-117); BUN 18 mg/dl (7-24); CHLORIDE 106 mmol/L (98-107); CREATININE 0.98 mg/dL (0.55-1.02); POTASSIUM 4.1 mmol/L (3.5-5.1); SGOT/AST 11 IU/L (3-35); SGPT/ALT 21 U/L (12-78); SODIUM 140 mmol/L (136-145); TOTAL PROTEIN 6.3 gm/dL (6.4-8.2)
[2020-08-14 14:22] LABS: TROPONIN I < 0.015 ng/ml (<0.045)
[2020-08-14 15:25] VITALS: BP 130/0
[2020-08-14 16:45] VITALS: BP 130/76
[2020-08-14 20:00] VITALS: BP 110/75
[2020-08-15] VITALS: BP 111/69
[2020-08-15 08:00] VITALS: BP 100/55
[2020-08-15 12:00] VITALS: BP 140/64
[2020-08-15 14:00] VITALS: BP 156/77
[2020-08-15 20:00] VITALS: BP 127/68
[2020-08-16] VITALS: BP 121/66
[2020-08-16 06:43] LABS: BASO % 0.1 % (0.0-1.0); HEMATOCRIT 44.4 % (37.0-47.0); LYMPH # 0.8 10*3/uL (1.3-4.4); LYMPH % 6.4 % (27.0-41.0); MEAN CELL VOLUME 94.5 fl (81.0-99.0); MEAN CORPUSCULAR HGB 30.2 pg (27.0-31.0); MEAN PLATELET VOLUME 9.9 fl (9.6-12.3); MONO # 0.5 10*3/uL (0.1-1.0); MONO % 3.8 % (3.0-9.0); NEUT # 11.3 10*3/uL (2.3-7.9); NEUT % 88.8 % (47.0-73.0); PLATELET COUNT AUTOMATED 292 10*3/uL (130-400); RED CELL DISTRI WIDTH 13.2 % (0-14.5); WHITE BLOOD COUNT 12.7 10*3/uL (4.8-10.8)
[2020-08-16 07:26] LABS: CHLORIDE 105 mmol/L (98-107); POTASSIUM 4.3 mmol/L (3.5-5.1); SODIUM 139 mmol/L (136-145)
[2020-08-16 07:27] LABS: BUN 20 mg/dl (7-24); CREATININE 0.99 mg/dL (0.55-1.02)
[2020-08-16 08:00] VITALS: BP 154/85
[2020-08-16] MEDS ORDERED: MEDROL DOSEPAK4 MG PO (10:00)
== END 2020-08-16 11:03 | disposition home or self-care (01) ==
LOC: ED 13:03 → EDHOLD 15:08 → 5E 15:08
PROVIDERS: Emergency Medicine; ADMIT Internal Medicine; ATTEND Internal Medicine
DX: J44.1 Chronic obstructive pulmonary disease with (acute) exacerbation (principal); I25.10 Atherosclerotic heart disease of native coronary artery without angina pectoris; E44.0 Moderate protein-calorie malnutrition; E66.01 Morbid (severe) obesity due to excess calories; K21.00 Gastro-esophageal reflux disease with esophagitis, without bleeding; I11.0 Hypertensive heart disease with heart failure; I50.32 Chronic diastolic (congestive) heart failure; E78.5 Hyperlipidemia, unspecified; E11.22 Type 2 diabetes mellitus with diabetic chronic kidney disease; I13.0 Hypertensive heart and chronic kidney disease with heart failure and stage 1 through stage 4 chronic kidney disease, or unspecified chronic kidney disease; N18.31 Chronic kidney disease, stage 3a; I50.33 Acute on chronic diastolic (congestive) heart failure; Z68.41 Body mass index [BMI] 40.0-44.9, adult; M19.90 Unspecified osteoarthritis, unspecified site; G89.29 Other chronic pain; D72.829 Elevated white blood cell count, unspecified; E11.65 Type 2 diabetes mellitus with hyperglycemia; R06.01 Orthopnea; E11.40 Type 2 diabetes mellitus with diabetic neuropathy, unspecified; E55.9 Vitamin D deficiency, unspecified; Z90.49 Acquired absence of other specified parts of digestive tract; Z98.890 Other specified postprocedural states

== ENCOUNTER 2020-12-12 14:42 | Inpatient (IN) | payer OTHER ==
[~2020-12-12] VITALS: Ht 162.5 cm; Wt 122.2 kg
[~2020-12-12 14:42] MED LIST changes: +MEDROL DOSEPAK4 MG PO
[2020-12-12 15:04] VITALS: BP 131/73
[2020-12-12 15:11] LABS: BASO % 0.3 % (0.0-1.0); EOS # 0.2 10*3/uL (0.0-0.4); EOS % 1.8 % (1.0-4.0); HEMATOCRIT 45.7 % (37.0-47.0); LYMPH # 1.6 10*3/uL (1.3-4.4); LYMPH % 13.9 % (27.0-41.0); MEAN CELL VOLUME 92.3 fl (81.0-99.0); MEAN CORPUSCULAR HGB 29.9 pg (27.0-31.0); MEAN CORPUSCULAR HGB CONC 32.4 g/dl (33.0-37.0); MEAN PLATELET VOLUME 9.4 fl (9.6-12.3); MONO # 0.8 10*3/uL (0.1-1.0); MONO % 7.2 % (3.0-9.0); NEUT # 8.8 10*3/uL (2.3-7.9); NEUT % 76.4 % (47.0-73.0); PLATELET COUNT AUTOMATED 304 10*3/uL (130-400); RED BLOOD COUNT 4.95 10*6/uL (4.10-5.10); RED CELL DISTRI WIDTH 13.5 % (0-14.5); WHITE BLOOD COUNT 11.6 10*3/uL (4.8-10.8)
[2020-12-12 15:28] LABS: ALBUMIN 3.6 gm/dl (3.1-4.5); ALKALINE PHOSPHATASE 99 U/L (45-117); BUN 14 mg/dl (7-24); CHLORIDE 108 mmol/L (98-107); CREATININE 0.98 mg/dL (0.55-1.02); POTASSIUM 3.7 mmol/L (3.5-5.1); SGOT/AST 13 IU/L (3-35); SGPT/ALT 29 U/L (12-78); SODIUM 136 mmol/L (136-145)
[2020-12-12 15:30] LABS: TOTAL PROTEIN 6.8 gm/dL (6.4-8.2)
[2020-12-12 15:33] LABS: TROPONIN I < 0.015 ng/ml (<0.045)
[2020-12-12 16:00] VITALS: BP 112/70
[2020-12-12 17:00] VITALS: BP 130/61
[2020-12-12 18:00] VITALS: BP 116/50
[2020-12-12 18:14] VITALS: BP 132/60
[2020-12-12] MEDS ORDERED: DICLO GEL1 EACH T (18:29)
[2020-12-12] MEDS ORDERED: NEURONTIN300 MG PO (18:30)
[2020-12-13] VITALS: BP 132/86
[2020-12-13 07:51] VITALS: BP 139/73
[2020-12-13 11:08] VITALS: BP 116/74
[2020-12-13 16:51] VITALS: BP 105/62
[2020-12-13 20:00] VITALS: BP 109/62
[2020-12-13 20:47] VITALS: BP 109/62
[2020-12-14] VITALS: BP 100/57
[2020-12-14] MEDS ORDERED: CEFUROXIME AXE250 MG PO (04:50)
[2020-12-14] MEDS ORDERED: PREDNISONE5 MG PO (04:50)
[2020-12-14 08:00] VITALS: BP 108/60
== END 2020-12-14 09:31 | disposition home or self-care (01) | DRG 189 ==
LOC: ED 14:42 → 5E 16:19 → EDHOLD 16:19 → 5E 18:01
PROVIDERS: Emergency Medicine; ADMIT Internal Medicine; ATTEND Internal Medicine
DX: J96.00 Acute respiratory failure, unspecified whether with hypoxia or hypercapnia (principal); J44.1 Chronic obstructive pulmonary disease with (acute) exacerbation; I50.32 Chronic diastolic (congestive) heart failure; E44.0 Moderate protein-calorie malnutrition; J98.11 Atelectasis; J45.51 Severe persistent asthma with (acute) exacerbation; J44.0 Chronic obstructive pulmonary disease with (acute) lower respiratory infection; Z68.42 Body mass index [BMI] 45.0-49.9, adult; J20.9 Acute bronchitis, unspecified; F17.210 Nicotine dependence, cigarettes, uncomplicated; I11.0 Hypertensive heart disease with heart failure; I89.0 Lymphedema, not elsewhere classified; E66.01 Morbid (severe) obesity due to excess calories; I25.10 Atherosclerotic heart disease of native coronary artery without angina pectoris; E11.65 Type 2 diabetes mellitus with hyperglycemia; T38.0X5A Adverse effect of glucocorticoids and synthetic analogues, initial encounter; Y92.89 Other specified places as the place of occurrence of the external cause; Z90.49 Acquired absence of other specified parts of digestive tract; Z95.5 Presence of coronary angioplasty implant and graft; Z80.1 Family history of malignant neoplasm of trachea, bronchus and lung; Z82.49 Family history of ischemic heart disease and other diseases of the circulatory system; Z71.6 Tobacco abuse counseling

== ENCOUNTER 2021-09-24 21:39 | Inpatient (IN) | payer OTHER ==
[~2021-09-24] VITALS: Ht 163 cm; Wt 91.0 kg
[~2021-09-24 21:39] MED LIST changes: +CEFUROXIME AXE250 MG PO; +DICLO GEL1 EACH T; +NEURONTIN300 MG PO; +PREDNISONE5 MG PO
[2021-09-24 22:07] LABS: BASO % 0.3 % (0.0-1.0); EOS # 0.2 10*3/uL (0.0-0.4); EOS % 2.4 % (1.0-4.0); HEMATOCRIT 44.8 % (37.0-47.0); LYMPH # 1.7 10*3/uL (1.3-4.4); LYMPH % 27.6 % (27.0-41.0); MEAN CELL VOLUME 91.4 fl (81.0-99.0); MEAN CORPUSCULAR HGB CONC 31.7 g/dl (33.0-37.0); MEAN PLATELET VOLUME 9.3 fl (9.6-12.3); MONO # 0.6 10*3/uL (0.1-1.0); MONO % 9.6 % (3.0-9.0); NEUT # 3.7 10*3/uL (2.3-7.9); NEUT % 59.8 % (47.0-73.0); PLATELET COUNT AUTOMATED 269 10*3/uL (130-400); RED CELL DISTRI WIDTH 13.7 % (0-14.5); WHITE BLOOD COUNT 6.2 10*3/uL (4.8-10.8)
[2021-09-24 22:22] LABS: ALKALINE PHOSPHATASE 89 U/L (45-117); BUN 13 mg/dl (7-24); CHLORIDE 106 mmol/L (98-107); CREATININE 0.91 mg/dL (0.55-1.02); POTASSIUM 4.3 mmol/L (3.5-5.1); SGOT/AST 14 IU/L (3-35); SGPT/ALT 33 U/L (12-78); SODIUM 140 mmol/L (136-145); TOTAL PROTEIN 6.9 gm/dL (6.4-8.2)
[2021-09-25 06:48] VITALS: BP 160/96
[2021-09-25 07:45] VITALS: BP 150/80
[2021-09-25 14:06] VITALS: BP 160/83
[2021-09-25 14:50] VITALS: BP 147/74
[2021-09-25 15:35] VITALS: BP 122/89
[2021-09-25 20:00] VITALS: BP 146/82
[2021-09-26] VITALS: BP 146/70
[2021-09-26 08:00] VITALS: BP 116/67
[2021-09-26 12:00] VITALS: BP 125/90
[2021-09-26 16:00] VITALS: BP 141/63
[2021-09-26 20:00] VITALS: BP 134/68
[2021-09-27] VITALS: BP 130/72
[2021-09-27 08:00] VITALS: BP 143/70
[2021-09-27 12:00] VITALS: BP 115/66; BP 127/85
[2021-09-27 16:00] VITALS: BP 121/62
[2021-09-27 20:00] VITALS: BP 122/66
[2021-09-28] VITALS: BP 120/64
[2021-09-28 12:00] VITALS: BP 130/77
[2021-09-28] MEDS ORDERED: ALBUTEROL S5 MG/1 ML NEB (16:05)
== END 2021-09-28 18:44 | disposition home or self-care (01) | DRG 189 ==
LOC: ED 21:39 → EDHOLD 09-25 00:24 → 5E 09-25 00:24
PROVIDERS: Emergency Medicine; ADMIT Internal Medicine; ATTEND Internal Medicine
DX: J96.20 Acute and chronic respiratory failure, unspecified whether with hypoxia or hypercapnia (principal); J44.1 Chronic obstructive pulmonary disease with (acute) exacerbation; Z68.41 Body mass index [BMI] 40.0-44.9, adult; I10 Essential (primary) hypertension; E11.65 Type 2 diabetes mellitus with hyperglycemia; F17.200 Nicotine dependence, unspecified, uncomplicated; T38.0X5A Adverse effect of glucocorticoids and synthetic analogues, initial encounter; I25.10 Atherosclerotic heart disease of native coronary artery without angina pectoris; E66.01 Morbid (severe) obesity due to excess calories; Z90.49 Acquired absence of other specified parts of digestive tract; Z71.6 Tobacco abuse counseling; Y92.89 Other specified places as the place of occurrence of the external cause; Z80.1 Family history of malignant neoplasm of trachea, bronchus and lung

== ENCOUNTER 2021-11-04 17:38 | Inpatient (IN) | payer OTHER ==
[~2021-11-04] VITALS: Ht 160 cm; Wt 114.9 kg
[2021-11-04 17:44] VITALS: BP 110/59
[2021-11-04 18:26] LABS: BASO % 0.4 % (0.0-1.0); EOS % 0.2 % (1.0-4.0); HEMATOCRIT 45.2 % (37.0-47.0); LYMPH # 1.5 10*3/uL (1.3-4.4); LYMPH % 28.6 % (27.0-41.0); MEAN CELL VOLUME 89.5 fl (81.0-99.0); MEAN CORPUSCULAR HGB 28.9 pg (27.0-31.0); MEAN CORPUSCULAR HGB CONC 32.3 g/dl (33.0-37.0); MEAN PLATELET VOLUME 9.7 fl (9.6-12.3); MONO # 0.6 10*3/uL (0.1-1.0); NEUT # 3.1 10*3/uL (2.3-7.9); NEUT % 58.4 % (47.0-73.0); PLATELET COUNT AUTOMATED 182 10*3/uL (130-400); RED BLOOD COUNT 5.05 10*6/uL (4.10-5.10); RED CELL DISTRI WIDTH 14.8 % (0-14.5); WHITE BLOOD COUNT 5.3 10*3/uL (4.8-10.8)
[2021-11-04 18:44] LABS: ACT PARTIAL THROMBO TIME 36.7 SECONDS (20.0-32.1)
[2021-11-04 19:01] LABS: ALKALINE PHOSPHATASE 92 U/L (45-117); BUN 10 mg/dl (7-24); CHLORIDE 109 mmol/L (98-107); CREATININE 0.88 mg/dL (0.55-1.02); LIPASE 146 U/L (73-393); SGOT/AST 33 IU/L (3-35); SGPT/ALT 41 U/L (12-78); SODIUM 138 mmol/L (136-145); TOTAL PROTEIN 6.8 gm/dL (6.4-8.2)
[2021-11-04 21:19] VITALS: BP 114/49
[2021-11-04 22:30] VITALS: BP 127/71
[2021-11-05] VITALS: BP 114/49
[2021-11-05 06:06] LABS: BUN 10 mg/dl (7-24); CHLORIDE 108 mmol/L (98-107); CREATININE 0.75 mg/dL (0.55-1.02); LDH 162 U/L (84-246); POTASSIUM 4.5 mmol/L (3.5-5.1); SODIUM 140 mmol/L (136-145)
[2021-11-05 06:33] LABS: BASO % 0.5 % (0.0-1.0); HEMATOCRIT 44.6 % (37.0-47.0); LYMPH # 0.8 10*3/uL (1.3-4.4); LYMPH % 19.3 % (27.0-41.0); MEAN CELL VOLUME 90.7 fl (81.0-99.0); MEAN CORPUSCULAR HGB 28.9 pg (27.0-31.0); MEAN CORPUSCULAR HGB CONC 31.8 g/dl (33.0-37.0); MEAN PLATELET VOLUME 10.2 fl (9.6-12.3); MONO # 0.2 10*3/uL (0.1-1.0); MONO % 4.5 % (3.0-9.0); NEUT # 3.1 10*3/uL (2.3-7.9); PLATELET COUNT AUTOMATED 186 10*3/uL (130-400); RED BLOOD COUNT 4.92 10*6/uL (4.10-5.10); RED CELL DISTRI WIDTH 14.8 % (0-14.5); WHITE BLOOD COUNT 4.2 10*3/uL (4.8-10.8)
[2021-11-05 08:00] VITALS: BP 93/74
[2021-11-05 12:00] VITALS: BP 110/68
[2021-11-05 16:00] VITALS: BP 121/65
[2021-11-05 20:00] VITALS: BP 110/65
[2021-11-06] VITALS: BP 111/53
[2021-11-06 06:32] LABS: BUN 16 mg/dl (7-24); CHLORIDE 107 mmol/L (98-107); CREATININE 0.79 mg/dL (0.55-1.02); POTASSIUM 4.2 mmol/L (3.5-5.1); SODIUM 140 mmol/L (136-145)
[2021-11-06] MEDS ORDERED: PREDNISONE5 MG PO (07:28)
[2021-11-06 08:00] VITALS: BP 131/61
[2021-11-06 12:00] VITALS: BP 125/74
[2021-11-06 16:00] VITALS: BP 114/60; BP 125/74
[2021-11-06 20:00] VITALS: BP 116/60
[2021-11-07] VITALS: BP 94/76
[2021-11-07 08:00] VITALS: BP 103/62
[2021-11-07 12:00] VITALS: BP 119/67
[2021-11-07 16:00] VITALS: BP 108/70
[2021-11-07 20:00] VITALS: BP 139/76
[2021-11-08] VITALS: BP 123/62
[2021-11-08 06:18] LABS: CREATININE 0.71 mg/dL (0.55-1.02)
[2021-11-08 06:19] LABS: BASO % 0.4 % (0.0-1.0); HEMATOCRIT 43.3 % (37.0-47.0); LYMPH # 1.4 10*3/uL (1.3-4.4); LYMPH % 31.9 % (27.0-41.0); MEAN CELL VOLUME 93.5 fl (81.0-99.0); MEAN CORPUSCULAR HGB 29.2 pg (27.0-31.0); MEAN CORPUSCULAR HGB CONC 31.2 g/dl (33.0-37.0); MEAN PLATELET VOLUME 10.3 fl (9.6-12.3); MONO # 0.6 10*3/uL (0.1-1.0); MONO % 12.3 % (3.0-9.0); NEUT # 2.4 10*3/uL (2.3-7.9); NEUT % 54.5 % (47.0-73.0); PLATELET COUNT AUTOMATED 223 10*3/uL (130-400); RED BLOOD COUNT 4.63 10*6/uL (4.10-5.10); RED CELL DISTRI WIDTH 14.9 % (0-14.5); WHITE BLOOD COUNT 4.5 10*3/uL (4.8-10.8)
[2021-11-08 08:00] VITALS: BP 124/54
[2021-11-08 12:00] VITALS: BP 131/60
[2021-11-08 16:00] VITALS: BP 132/61
[2021-11-08 20:00] VITALS: BP 115/64
[2021-11-09] VITALS: BP 130/92
[2021-11-09 08:00] VITALS: BP 138/61
== END 2021-11-09 10:35 | disposition home or self-care (01) | DRG 177 ==
LOC: ED 17:38 → EDHOLD 18:56 → 4E 18:56
PROVIDERS: Emergency Medicine; ADMIT Internal Medicine; ATTEND Internal Medicine
PROC: XW033E5 Introduction of Remdesivir Anti-infective into Peripheral Vein, Percutaneous Approach, New Technology Group 5 (ICD-10-PCS; principal; 2021-11-05)
DX: U07.1 COVID-19 (principal); J96.20 Acute and chronic respiratory failure, unspecified whether with hypoxia or hypercapnia; J44.1 Chronic obstructive pulmonary disease with (acute) exacerbation; I24.8 Other forms of acute ischemic heart disease; I25.10 Atherosclerotic heart disease of native coronary artery without angina pectoris; I10 Essential (primary) hypertension; E11.9 Type 2 diabetes mellitus without complications; F17.210 Nicotine dependence, cigarettes, uncomplicated; Z71.6 Tobacco abuse counseling; Z80.1 Family history of malignant neoplasm of trachea, bronchus and lung; Z79.51 Long term (current) use of inhaled steroids; Z79.899 Other long term (current) drug therapy; Z90.49 Acquired absence of other specified parts of digestive tract; Z95.5 Presence of coronary angioplasty implant and graft

== ENCOUNTER 2022-01-27 07:34 | Emergency (ER) | payer OTHER ==
[~2022-01-27] VITALS: Wt 90.7 kg
[2022-01-27 07:35] VITALS: BP 154/55
[2022-01-27 08:14] LABS: BASO % 0.6 % (0.0-1.0); HEMATOCRIT 43.1 % (37.0-47.0); LYMPH # 1.7 10*3/uL (1.3-4.4); LYMPH % 24.5 % (27.0-41.0); MEAN CELL VOLUME 95.8 fl (81.0-99.0); MEAN CORPUSCULAR HGB 30.4 pg (27.0-31.0); MEAN CORPUSCULAR HGB CONC 31.8 g/dl (33.0-37.0); MEAN PLATELET VOLUME 9.2 fl (9.6-12.3); MONO # 0.6 10*3/uL (0.1-1.0); MONO % 8.2 % (3.0-9.0); NEUT # 4.6 10*3/uL (2.3-7.9); NEUT % 66.4 % (47.0-73.0); PLATELET COUNT AUTOMATED 279 10*3/uL (130-400); RED CELL DISTRI WIDTH 14.1 % (0-14.5)
[2022-01-27 08:34] LABS: ALKALINE PHOSPHATASE 91 U/L (45-117); BUN 22 mg/dl (7-24); CHLORIDE 109 mmol/L (98-107); CREATININE 0.91 mg/dL (0.55-1.02); POTASSIUM 4.3 mmol/L (3.5-5.1); SGOT/AST 10 IU/L (3-35); SGPT/ALT 20 U/L (12-78); SODIUM 139 mmol/L (136-145); TOTAL PROTEIN 6.8 gm/dL (6.4-8.2)
[2022-01-27] MEDS ORDERED: PREDNISONE10 MG PO (10:12)
[2022-01-27] MEDS ORDERED: DOXYCYCLINE HY100 M3 PO (10:12)
== END 2022-01-27 10:20 | disposition home or self-care (01) ==
LOC: ED 07:34
PROVIDERS: Family Medicine
DX: J44.1 Chronic obstructive pulmonary disease with (acute) exacerbation (principal); Z79.899 Other long term (current) drug therapy; Z90.49 Acquired absence of other specified parts of digestive tract; Z95.5 Presence of coronary angioplasty implant and graft

== ENCOUNTER 2022-03-18 14:26 | Emergency (ER) | payer OTHER ==
[~2022-03-18 14:26] MED LIST changes: +BUDESONIDE0.5 MG/2 M NEB; +CIPRO500 MG PO; +DOXYCYCLINE HY100 M3 PO; +GLIMEPIRIDE4 M1 PO; +LOSARTAN-HCTZ1 EACH PO; +VENTOLIN 02.5 MG/3 M INH
[2022-03-18 15:28] LABS: BASO % 0.3 % (0.0-1.0); HEMATOCRIT 43.6 % (37.0-47.0); LYMPH # 1.2 10*3/uL (1.3-4.4); LYMPH % 13.1 % (27.0-41.0); MEAN CELL VOLUME 96.7 fl (81.0-99.0); MEAN CORPUSCULAR HGB 30.6 pg (27.0-31.0); MEAN CORPUSCULAR HGB CONC 31.7 g/dl (33.0-37.0); MEAN PLATELET VOLUME 9.3 fl (9.6-12.3); MONO # 0.4 10*3/uL (0.1-1.0); MONO % 4.6 % (3.0-9.0); NEUT # 7.3 10*3/uL (2.3-7.9); NEUT % 81.2 % (47.0-73.0); PLATELET COUNT AUTOMATED 272 10*3/uL (130-400); RED BLOOD COUNT 4.51 10*6/uL (4.10-5.10); RED CELL DISTRI WIDTH 13.4 % (0-14.5)
[2022-03-18 15:43] LABS: ALKALINE PHOSPHATASE 95 U/L (45-117); BUN 20 mg/dl (7-24); CHLORIDE 106 mmol/L (98-107); CREATININE 0.85 mg/dL (0.55-1.02); POTASSIUM 4.2 mmol/L (3.5-5.1); SGOT/AST 16 IU/L (3-35); SGPT/ALT 24 U/L (12-78); SODIUM 140 mmol/L (136-145); TOTAL PROTEIN 6.8 gm/dL (6.4-8.2)
[2022-03-18 16:40] VITALS: BP 155/95
[2022-03-18] MEDS ORDERED: MEDROL DOSEPAK4 MG PO (18:44)
[2022-03-18] MEDS ORDERED: VIBRAMYCIN100 MG PO (18:44)
== END 2022-03-18 18:50 | disposition home or self-care (01) ==
LOC: ED 14:26
PROVIDERS: Physician Assistant
DX: J44.1 Chronic obstructive pulmonary disease with (acute) exacerbation (principal); I25.2 Old myocardial infarction; I13.0 Hypertensive heart and chronic kidney disease with heart failure and stage 1 through stage 4 chronic kidney disease, or unspecified chronic kidney disease; E11.22 Type 2 diabetes mellitus with diabetic chronic kidney disease; N18.9 Chronic kidney disease, unspecified; Z79.899 Other long term (current) drug therapy; F17.200 Nicotine dependence, unspecified, uncomplicated; Z79.2 Long term (current) use of antibiotics; Z90.49 Acquired absence of other specified parts of digestive tract; Z95.5 Presence of coronary angioplasty implant and graft

== ENCOUNTER 2022-06-27 18:14 | Emergency (ER) | payer OTHER ==
[~2022-06-27] VITALS: Ht 162.5 cm; Wt 102.1 kg
[~2022-06-27 18:14] MED LIST changes: +DALI500T PO; +GLIMEPIRIDE2 MG PO; +Ipratropium Brom3 ML NEB; +NICODERM CQ1 EAC2 T; +VIBRAMYCIN100 MG PO
[2022-06-27 18:19] VITALS: BP 109/78
[2022-06-27 18:51] LABS: BASO % 0.6 % (0.0-1.0); HEMATOCRIT 38.9 % (37.0-47.0); LYMPH % 39.8 % (27.0-41.0); MEAN CELL VOLUME 95.3 fl (81.0-99.0); MEAN CORPUSCULAR HGB 30.9 pg (27.0-31.0); MEAN CORPUSCULAR HGB CONC 32.4 g/dl (33.0-37.0); MEAN PLATELET VOLUME 8.6 fl (9.6-12.3); MONO # 0.6 10*3/uL (0.1-1.0); MONO % 11.5 % (3.0-9.0); NEUT # 2.4 10*3/uL (2.3-7.9); NEUT % 47.1 % (47.0-73.0); PLATELET COUNT AUTOMATED 306 10*3/uL (130-400); RED BLOOD COUNT 4.08 10*6/uL (4.10-5.10); RED CELL DISTRI WIDTH 12.8 % (0-14.5)
[2022-06-27 19:21] LABS: ALKALINE PHOSPHATASE 96 U/L (46-116); BUN 14 mg/dl (9-23); CHLORIDE 106 mmol/L (98-107); POTASSIUM 3.9 mmol/L (3.4-5.1); SGPT/ALT 21 U/L (10-49); TOTAL PROTEIN 6.6 gm/dL (6.0-8.0)
[2022-06-27] MEDS ORDERED: PREDNISONE20 M1 PO (19:38)
[2022-06-27] MEDS ORDERED: VIBRAMYCIN100 MG PO (19:38)
== END 2022-06-27 19:52 | disposition home or self-care (01) ==
LOC: ED 18:14
PROVIDERS: Physician Assistant
DX: J44.1 Chronic obstructive pulmonary disease with (acute) exacerbation (principal); Z90.49 Acquired absence of other specified parts of digestive tract; Z98.890 Other specified postprocedural states; F17.200 Nicotine dependence, unspecified, uncomplicated

== ENCOUNTER → 2022-08-26 | Outpatient (CLI) | payer OTHER ==
[~2022-08-26] MED LIST changes: +AMOX-CLAV 875-1 EACH PO; +COREG6.25 MG PO; +GABAPENTIN100 M2 PO; +LASIX20 MG PO; +LOSARTAN POTASS50 M1 PO; +MONTELUKAST SOD10 MG PO; +PREDNISONE20 M1 PO; +SPIRIVA RESPIMAT4 GM INH
== END | disposition home or self-care (01) ==
LOC: RAD 15:30
PROVIDERS: ATTEND Internal Medicine
DX: M16.11 Unilateral primary osteoarthritis, right hip (principal)

== ENCOUNTER 2022-09-09 13:36 | Emergency (ER) | payer OTHER ==
[~2022-09-09] VITALS: Ht 160 cm; Wt 136.1 kg
[~2022-09-09 13:36] MED LIST changes: +HYZAAR 50-12.51 EACH PO; +TRAMADOL HCL50 MG PO
[2022-09-09 14:44] VITALS: BP 120/88
[2022-09-09 16:04] LABS: BASO % 0.1 % (0.0-1.0); HEMATOCRIT 39.4 % (37.0-47.0); LYMPH # 0.8 10*3/uL (1.3-4.4); LYMPH % 9.8 % (27.0-41.0); MEAN CELL VOLUME 95.4 fl (81.0-99.0); MEAN CORPUSCULAR HGB 30.5 pg (27.0-31.0); MEAN PLATELET VOLUME 9.3 fl (9.6-12.3); MONO # 0.2 10*3/uL (0.1-1.0); MONO % 2.2 % (3.0-9.0); NEUT # 6.9 10*3/uL (2.3-7.9); NEUT % 87.3 % (47.0-73.0); PLATELET COUNT AUTOMATED 260 10*3/uL (130-400); RED BLOOD COUNT 4.13 10*6/uL (4.10-5.10); RED CELL DISTRI WIDTH 13.3 % (0-14.5); WHITE BLOOD COUNT 7.9 10*3/uL (4.8-10.8)
[2022-09-09 16:15] LABS: ACT PARTIAL THROMBO TIME 29.2 SECONDS (20.0-32.1)
[2022-09-09 16:26] LABS: ALKALINE PHOSPHATASE 84 U/L (46-116); BUN 12 mg/dl (9-23); CHLORIDE 104 mmol/L (98-107); LIPASE 37 U/L (12-53); POTASSIUM 3.8 mmol/L (3.4-5.1); SGPT/ALT 12 U/L (10-49); TOTAL PROTEIN 6.5 gm/dL (6.0-8.0)
[2022-09-09] MEDS ORDERED: PROVENTIL HFA6.7 GM INH ×2 (18:33)
[2022-09-09] MEDS ORDERED: PREDNISONE20 M1 PO ×2 (18:33)
== END 2022-09-09 18:44 | disposition home or self-care (01) ==
LOC: ED 13:36
PROVIDERS: Physician Assistant
DX: J44.1 Chronic obstructive pulmonary disease with (acute) exacerbation (principal); I50.9 Heart failure, unspecified; E78.00 Pure hypercholesterolemia, unspecified; E11.22 Type 2 diabetes mellitus with diabetic chronic kidney disease; I13.0 Hypertensive heart and chronic kidney disease with heart failure and stage 1 through stage 4 chronic kidney disease, or unspecified chronic kidney disease; N18.9 Chronic kidney disease, unspecified

== ENCOUNTER 2022-09-22 17:28 | Emergency (ER) | payer OTHER ==
[~2022-09-22] VITALS: Ht 162.5 cm; Wt 113.4 kg
[~2022-09-22 17:28] MED LIST changes: +PROVENTIL HFA6.7 GM INH
[2022-09-22 17:38] VITALS: BP 99/49
[2022-09-22 18:11] LABS: BASO % 0.3 % (0.0-1.0); HEMATOCRIT 39.2 % (37.0-47.0); LYMPH # 1.6 10*3/uL (1.3-4.4); LYMPH % 22.7 % (27.0-41.0); MEAN CELL VOLUME 93.8 fl (81.0-99.0); MEAN CORPUSCULAR HGB 30.6 pg (27.0-31.0); MEAN CORPUSCULAR HGB CONC 32.7 g/dl (33.0-37.0); MONO # 0.6 10*3/uL (0.1-1.0); NEUT # 4.8 10*3/uL (2.3-7.9); NEUT % 68.3 % (47.0-73.0); PLATELET COUNT AUTOMATED 313 10*3/uL (130-400); RED BLOOD COUNT 4.18 10*6/uL (4.10-5.10); RED CELL DISTRI WIDTH 13.2 % (0-14.5)
[2022-09-22] MEDS ORDERED: TRADJENTA5 M1 PO (18:23)
[2022-09-22 18:27] LABS: POTASSIUM 3.6 mmol/L (3.4-5.1)
[2022-09-22] MEDS ORDERED: PREDNISONE20 M1 PO (18:45)
== END 2022-09-22 19:18 | disposition home or self-care (01) ==
LOC: ED 17:28
PROVIDERS: Emergency Medicine
DX: J44.1 Chronic obstructive pulmonary disease with (acute) exacerbation (principal); Z79.899 Other long term (current) drug therapy; Z90.49 Acquired absence of other specified parts of digestive tract; Z98.890 Other specified postprocedural states; F17.200 Nicotine dependence, unspecified, uncomplicated

== ENCOUNTER 2022-12-15 15:41 | Inpatient (IN) | payer OTHER ==
[~2022-12-15] VITALS: Ht 162.6 cm; Wt 122.0 kg
[~2022-12-15 15:41] MED LIST changes: +DOXYCYCLINE MO100 MG PO; +Ipratropium Brom3 ML INH; +NEURONTIN400 MG PO; +Ondansetron4 MG PO; +SPIRIVA 5 CAPS18 MCG INH; +TRADJENTA5 M1 PO
[2022-12-15 15:52] VITALS: BP 105/57
[2022-12-15 17:13] LABS: BASO % 0.4 % (0.0-1.0); HEMATOCRIT 38.9 % (37.0-47.0); LYMPH # 1.9 10*3/uL (1.3-4.4); LYMPH % 23.2 % (27.0-41.0); MEAN CELL VOLUME 90.7 fl (81.0-99.0); MEAN CORPUSCULAR HGB 29.8 pg (27.0-31.0); MEAN CORPUSCULAR HGB CONC 32.9 g/dl (33.0-37.0); MEAN PLATELET VOLUME 8.9 fl (9.6-12.3); MONO # 0.7 10*3/uL (0.1-1.0); MONO % 8.4 % (3.0-9.0); NEUT # 5.6 10*3/uL (2.3-7.9); NEUT % 67.3 % (47.0-73.0); PLATELET COUNT AUTOMATED 336 10*3/uL (130-400); RED BLOOD COUNT 4.29 10*6/uL (4.10-5.10); RED CELL DISTRI WIDTH 13.2 % (0-14.5); WHITE BLOOD COUNT 8.3 10*3/uL (4.8-10.8)
[2022-12-15 17:28] LABS: ACT PARTIAL THROMBO TIME 25.6 SECONDS (20.0-32.1)
[2022-12-15 17:36] LABS: ALKALINE PHOSPHATASE 77 U/L (46-116); BUN 19 mg/dl (9-23); CHLORIDE 97 mmol/L (98-107); LDH 152 U/L (120-246); LIPASE 49 U/L (12-53); POTASSIUM 3.4 mmol/L (3.4-5.1); SGPT/ALT 24 U/L (10-49); TOTAL PROTEIN 6.5 gm/dL (6.0-8.0)
[2022-12-15 18:21] VITALS: BP 100/60
[2022-12-15 19:08] VITALS: BP 108/51
[2022-12-15 23:15] VITALS: BP 131/81
[2022-12-15] MEDS ORDERED: METFORMIN HYD1000 MG PO (23:35)
[2022-12-16 06:32] LABS: BASO % 0.1 % (0.0-1.0); HEMATOCRIT 38.3 % (37.0-47.0); LYMPH # 0.9 10*3/uL (1.3-4.4); LYMPH % 12.5 % (27.0-41.0); MEAN CORPUSCULAR HGB 29.9 pg (27.0-31.0); MEAN CORPUSCULAR HGB CONC 32.1 g/dl (33.0-37.0); MEAN PLATELET VOLUME 9.4 fl (9.6-12.3); MONO # 0.1 10*3/uL (0.1-1.0); NEUT % 85.5 % (47.0-73.0); PLATELET COUNT AUTOMATED 318 10*3/uL (130-400); RED BLOOD COUNT 4.12 10*6/uL (4.10-5.10); RED CELL DISTRI WIDTH 13.2 % (0-14.5)
[2022-12-16 06:47] LABS: POTASSIUM 3.8 mmol/L (3.4-5.1)
[2022-12-16 08:00] VITALS: BP 117/63
[2022-12-16 12:00] VITALS: BP 104/62
[2022-12-16 16:00] VITALS: BP 134/90
[2022-12-16 20:00] VITALS: BP 122/67
[2022-12-17] VITALS: BP 123/79
[2022-12-17 08:00] VITALS: BP 124/55
[2022-12-17 12:00] VITALS: BP 115/58
[2022-12-17 16:00] VITALS: BP 124/62
[2022-12-17 20:00] VITALS: BP 120/73
[2022-12-18] VITALS: BP 125/61
[2022-12-18 08:00] VITALS: BP 140/79; BP 143/96
[2022-12-18] MEDS ORDERED: MEDROL DOSEPAK4 MG PO (11:26)
[2022-12-18 12:00] VITALS: BP 145/64
== END 2022-12-18 12:10 | disposition home or self-care (01) | DRG 189 ==
LOC: ED 15:41 → EDHOLD 16:08 → 4E 18:59 → EDHOLD 20:14 → 4E 22:25
PROVIDERS: Physician Assistant Medical; ADMIT Internal Medicine; ATTEND Internal Medicine
DX: J96.21 Acute and chronic respiratory failure with hypoxia (principal); J44.1 Chronic obstructive pulmonary disease with (acute) exacerbation; Z68.42 Body mass index [BMI] 45.0-49.9, adult; E66.01 Morbid (severe) obesity due to excess calories; M16.11 Unilateral primary osteoarthritis, right hip; I10 Essential (primary) hypertension; E11.42 Type 2 diabetes mellitus with diabetic polyneuropathy; I25.10 Atherosclerotic heart disease of native coronary artery without angina pectoris; G89.29 Other chronic pain; R62.7 Adult failure to thrive; Z91.119 Patient's noncompliance with dietary regimen due to unspecified reason; Z80.1 Family history of malignant neoplasm of trachea, bronchus and lung; Z90.49 Acquired absence of other specified parts of digestive tract

== ENCOUNTER 2023-01-13 14:21 | Inpatient (IN) | payer OTHER ==
[~2023-01-13] VITALS: Ht 162.6 cm; Wt 123.5 kg
[~2023-01-13 14:21] MED LIST changes: +METFORMIN HYD1000 MG PO
[2023-01-13 15:02] VITALS: BP 105/74
[2023-01-13 15:06] LABS: BASO % 0.2 % (0.0-1.0); HEMATOCRIT 37.6 % (37.0-47.0); LYMPH # 1.9 10*3/uL (1.3-4.4); LYMPH % 30.6 % (27.0-41.0); MEAN CELL VOLUME 92.2 fl (81.0-99.0); MEAN CORPUSCULAR HGB 30.4 pg (27.0-31.0); MONO # 0.5 10*3/uL (0.1-1.0); MONO % 7.9 % (3.0-9.0); NEUT # 3.7 10*3/uL (2.3-7.9); PLATELET COUNT AUTOMATED 346 10*3/uL (130-400); RED BLOOD COUNT 4.08 10*6/uL (4.10-5.10); RED CELL DISTRI WIDTH 13.7 % (0-14.5); WHITE BLOOD COUNT 6.1 10*3/uL (4.8-10.8)
[2023-01-13 15:18] LABS: ACT PARTIAL THROMBO TIME 25.9 SECONDS (20.0-32.1)
[2023-01-13 15:28] LABS: ALKALINE PHOSPHATASE 82 U/L (46-116); BUN 13 mg/dl (9-23); CHLORIDE 102 mmol/L (98-107); LIPASE 38 U/L (12-53); POTASSIUM 3.4 mmol/L (3.4-5.1); SGPT/ALT 17 U/L (10-49); TOTAL PROTEIN 6.4 gm/dL (6.0-8.0)
[2023-01-13 16:34] VITALS: BP 96/72
[2023-01-13] MEDS ORDERED: BUDESONIDE0.5 MG/2 M INH (16:46)
[2023-01-13] MEDS ORDERED: LOSARTAN-HCTZ1 EACH PO (16:49)
[2023-01-13] MEDS ORDERED: CLOPIDOGREL75 MG PO (16:50)
[2023-01-13] MEDS ORDERED: GLIMEPIRIDE4 M1 PO (16:51)
[2023-01-13] MEDS ORDERED: JANUVIA100 MG PO (16:51)
[2023-01-13 17:05] VITALS: BP 135/84
[2023-01-13] MEDS ORDERED: GLUMETZA1000 MG PO (17:29)
[2023-01-13 20:00] VITALS: BP 115/53
[2023-01-14] VITALS: BP 123/74
[2023-01-14 06:28] LABS: BASO % 0.3 % (0.0-1.0); HEMATOCRIT 36.9 % (37.0-47.0); LYMPH # 0.9 10*3/uL (1.3-4.4); LYMPH % 15.6 % (27.0-41.0); MEAN CELL VOLUME 92.3 fl (81.0-99.0); MEAN CORPUSCULAR HGB 30.3 pg (27.0-31.0); MEAN CORPUSCULAR HGB CONC 32.8 g/dl (33.0-37.0); MEAN PLATELET VOLUME 8.9 fl (9.6-12.3); MONO # 0.1 10*3/uL (0.1-1.0); MONO % 2.3 % (3.0-9.0); NEUT # 4.9 10*3/uL (2.3-7.9); PLATELET COUNT AUTOMATED 341 10*3/uL (130-400); RED CELL DISTRI WIDTH 13.4 % (0-14.5)
[2023-01-14 07:14] LABS: POTASSIUM 3.7 mmol/L (3.4-5.1)
[2023-01-14 08:00] VITALS: BP 132/84
[2023-01-14 08:57] VITALS: BP 143/91
[2023-01-14 11:54] VITALS: BP 132/86
[2023-01-14 16:00] VITALS: BP 113/74
[2023-01-14 20:00] VITALS: BP 118/76
[2023-01-15] VITALS: BP 115/65; BP 116/60
[2023-01-15 08:00] VITALS: BP 111/56
[2023-01-15 08:01] LABS: POTASSIUM 3.7 mmol/L (3.4-5.1)
[2023-01-15 09:21] VITALS: BP 130/54
[2023-01-15 12:00] VITALS: BP 116/63
[2023-01-15 16:00] VITALS: BP 122/57
[2023-01-15 20:00] VITALS: BP 119/62
[2023-01-16] VITALS: BP 116/60
[2023-01-16 08:00] VITALS: BP 116/71
[2023-01-16 12:00] VITALS: BP 130/65
[2023-01-16 16:00] VITALS: BP 128/60
[2023-01-16 20:00] VITALS: BP 126/68
[2023-01-17] VITALS: BP 121/72
[2023-01-17 08:00] VITALS: BP 125/71
[2023-01-17 12:00] VITALS: BP 112/61
[2023-01-17 16:00] VITALS: BP 110/59
[2023-01-17 20:00] VITALS: BP 132/76
[2023-01-18] VITALS: BP 139/75
[2023-01-18 08:00] VITALS: BP 138/78
[2023-01-18] MEDS ORDERED: IMDUR SA30 MG PO (08:17)
[2023-01-18] MEDS ORDERED: ATORVASTATIN CA20 M1 PO (08:17)
[2023-01-18] MEDS ORDERED: CIPRO500 MG PO (08:17)
[2023-01-18] MEDS ORDERED: PREDNISONE5 MG PO (08:17)
== END 2023-01-18 11:45 | disposition home health service (06) | DRG 191 ==
LOC: ED 14:21 → 4E 16:11 → EDHOLD 16:11 → 4E 16:28
PROVIDERS: Emergency Medicine; ADMIT Internal Medicine; ATTEND Internal Medicine
DX: J44.1 Chronic obstructive pulmonary disease with (acute) exacerbation (principal); I13.0 Hypertensive heart and chronic kidney disease with heart failure and stage 1 through stage 4 chronic kidney disease, or unspecified chronic kidney disease; J96.12 Chronic respiratory failure with hypercapnia; N17.9 Acute kidney failure, unspecified; I50.30 Unspecified diastolic (congestive) heart failure; Z68.42 Body mass index [BMI] 45.0-49.9, adult; E66.01 Morbid (severe) obesity due to excess calories; E78.5 Hyperlipidemia, unspecified; I25.10 Atherosclerotic heart disease of native coronary artery without angina pectoris; E11.22 Type 2 diabetes mellitus with diabetic chronic kidney disease; G89.29 Other chronic pain; K21.9 Gastro-esophageal reflux disease without esophagitis; E11.40 Type 2 diabetes mellitus with diabetic neuropathy, unspecified; N18.31 Chronic kidney disease, stage 3a; E78.2 Mixed hyperlipidemia; Z90.49 Acquired absence of other specified parts of digestive tract; Z87.01 Personal history of pneumonia (recurrent); Z98.61 Coronary angioplasty status; Z80.1 Family history of malignant neoplasm of trachea, bronchus and lung

== ENCOUNTER 2023-03-18 20:43 | Emergency (ER) | payer OTHER ==
[~2023-03-18] VITALS: Ht 162.5 cm; Wt 113.4 kg
[~2023-03-18 20:43] MED LIST changes: +ATORVASTATIN CA20 M1 PO; +BUDESONIDE0.5 MG/2 M INH; +FLUTICASONE-SA1 EAC5 INH; +GABAPENTIN600 MG PO; +GLUMETZA1000 MG PO; +IMDUR SA30 MG PO
[2023-03-18 20:57] VITALS: BP 108/90
[2023-03-18 22:02] LABS: HEMATOCRIT 36.3 % (37.0-47.0); MEAN CELL VOLUME 94.8 fl (81.0-99.0); MEAN CORPUSCULAR HGB 30.8 pg (27.0-31.0); MEAN CORPUSCULAR HGB CONC 32.5 g/dl (33.0-37.0); MEAN PLATELET VOLUME 9.4 fl (9.6-12.3); PLATELET COUNT AUTOMATED 277 10*3/uL (130-400); RED BLOOD COUNT 3.83 10*6/uL (4.10-5.10); WHITE BLOOD COUNT 9.8 10*3/uL (4.8-10.8)
[2023-03-18 22:15] LABS: MANUAL DIFF REFLEX YES
[2023-03-18 22:21] LABS: POTASSIUM 4.1 mmol/L (3.4-5.1); TOTAL PROTEIN 5.1 gm/dL (6.0-8.0)
[2023-03-18 22:28] LABS: PLATELET SUFFICIENCY NORMAL (NORMAL); TOTAL CELLS COUNTED 100 #CELLS
== END 2023-03-18 23:18 | disposition home or self-care (01) ==
LOC: ED 20:43
PROVIDERS: Physician Assistant Medical
DX: J44.9 Chronic obstructive pulmonary disease, unspecified (principal); E11.22 Type 2 diabetes mellitus with diabetic chronic kidney disease; I25.10 Atherosclerotic heart disease of native coronary artery without angina pectoris; I13.0 Hypertensive heart and chronic kidney disease with heart failure and stage 1 through stage 4 chronic kidney disease, or unspecified chronic kidney disease; N18.9 Chronic kidney disease, unspecified; I50.9 Heart failure, unspecified; K21.9 Gastro-esophageal reflux disease without esophagitis; I25.2 Old myocardial infarction; E11.40 Type 2 diabetes mellitus with diabetic neuropathy, unspecified; Z90.49 Acquired absence of other specified parts of digestive tract; Z98.890 Other specified postprocedural states; F17.290 Nicotine dependence, other tobacco product, uncomplicated

== ENCOUNTER 2023-03-25 17:30 | Emergency (ER) | payer OTHER ==
[~2023-03-25] VITALS: Ht 162.5 cm; Wt 108.9 kg
[2023-03-25 19:13] VITALS: BP 141/56
[2023-03-25] MEDS ORDERED: PREDNISONE20 M1 PO (19:13)
[2023-03-25] MEDS ORDERED: VIBRAMYCIN100 MG PO (19:13)
== END 2023-03-25 19:26 | disposition home or self-care (01) ==
LOC: ED 17:30
DX: J18.9 Pneumonia, unspecified organism (principal); F17.200 Nicotine dependence, unspecified, uncomplicated; Z79.899 Other long term (current) drug therapy; Z79.2 Long term (current) use of antibiotics; Z90.49 Acquired absence of other specified parts of digestive tract

== ENCOUNTER 2023-04-15 20:52 | Emergency (ER) | payer OTHER ==
[~2023-04-15] VITALS: Ht 162.5 cm; Wt 117.9 kg
[~2023-04-15 20:52] MED LIST changes: +ATIVAN0.5 MG PO; +LORAZEPAM0.5 M1 PO
[2023-04-15 21:04] VITALS: BP 106/67
[2023-04-15 21:21] LABS: BASO % 0.1 % (0.0-1.0); HEMATOCRIT 37.9 % (37.0-47.0); LYMPH # 0.3 10*3/uL (1.3-4.4); LYMPH % 3.5 % (27.0-41.0); MEAN CELL VOLUME 95.2 fl (81.0-99.0); MEAN CORPUSCULAR HGB 30.9 pg (27.0-31.0); MEAN CORPUSCULAR HGB CONC 32.5 g/dl (33.0-37.0); MEAN PLATELET VOLUME 9.1 fl (9.6-12.3); MONO # 0.5 10*3/uL (0.1-1.0); MONO % 4.9 % (3.0-9.0); NEUT # 8.7 10*3/uL (2.3-7.9); PLATELET COUNT AUTOMATED 246 10*3/uL (130-400); RED BLOOD COUNT 3.98 10*6/uL (4.10-5.10); RED CELL DISTRI WIDTH 14.4 % (0-14.5); WHITE BLOOD COUNT 9.8 10*3/uL (4.8-10.8)
[2023-04-15 21:57] LABS: POTASSIUM 3.2 mmol/L (3.4-5.1); TOTAL PROTEIN 5.4 gm/dL (6.0-8.0)
== END 2023-04-15 23:03 | disposition home or self-care (01) ==
LOC: ED 20:52
PROVIDERS: Nurse Practitioner Family
DX: E87.6 Hypokalemia (principal); R12 Heartburn; F17.200 Nicotine dependence, unspecified, uncomplicated; Z79.2 Long term (current) use of antibiotics; Z79.899 Other long term (current) drug therapy; Z90.49 Acquired absence of other specified parts of digestive tract; Z95.5 Presence of coronary angioplasty implant and graft

== ENCOUNTER 2023-04-17 17:14 | Emergency (ER) | payer OTHER ==
[~2023-04-17] VITALS: Ht 162.5 cm; Wt 130.4 kg
[2023-04-17 17:39] LABS: BASO % 0.2 % (0.0-1.0); HEMATOCRIT 34.7 % (37.0-47.0); LYMPH # 0.6 10*3/uL (1.3-4.4); MEAN CELL VOLUME 94.8 fl (81.0-99.0); MEAN CORPUSCULAR HGB 31.1 pg (27.0-31.0); MEAN CORPUSCULAR HGB CONC 32.9 g/dl (33.0-37.0); MEAN PLATELET VOLUME 9.5 fl (9.6-12.3); MONO # 0.3 10*3/uL (0.1-1.0); MONO % 5.5 % (3.0-9.0); NEUT # 4.4 10*3/uL (2.3-7.9); NEUT % 81.3 % (47.0-73.0); PLATELET COUNT AUTOMATED 187 10*3/uL (130-400); RED BLOOD COUNT 3.66 10*6/uL (4.10-5.10); RED CELL DISTRI WIDTH 13.9 % (0-14.5); WHITE BLOOD COUNT 5.4 10*3/uL (4.8-10.8)
[2023-04-17 17:49] LABS: ACT PARTIAL THROMBO TIME 22.5 SECONDS (20.0-32.1)
[2023-04-17 18:01] LABS: POTASSIUM 3.4 mmol/L (3.4-5.1)
[2023-04-17 19:46] VITALS: BP 110/40
== END 2023-04-17 21:35 | disposition home or self-care (01) ==
LOC: ED 17:14
PROVIDERS: Nurse Practitioner Family
DX: R60.0 Localized edema (principal); Z99.81 Dependence on supplemental oxygen; F41.9 Anxiety disorder, unspecified; J44.9 Chronic obstructive pulmonary disease, unspecified; E87.6 Hypokalemia; D64.9 Anemia, unspecified; I25.10 Atherosclerotic heart disease of native coronary artery without angina pectoris; I50.9 Heart failure, unspecified; E78.5 Hyperlipidemia, unspecified; K21.9 Gastro-esophageal reflux disease without esophagitis; I13.0 Hypertensive heart and chronic kidney disease with heart failure and stage 1 through stage 4 chronic kidney disease, or unspecified chronic kidney disease; E11.22 Type 2 diabetes mellitus with diabetic chronic kidney disease; N18.30 Chronic kidney disease, stage 3 unspecified; I25.2 Old myocardial infarction; E11.40 Type 2 diabetes mellitus with diabetic neuropathy, unspecified; Z90.49 Acquired absence of other specified parts of digestive tract; Z95.5 Presence of coronary angioplasty implant and graft; Z98.890 Other specified postprocedural states; F17.200 Nicotine dependence, unspecified, uncomplicated

== ENCOUNTER 2024-02-15 12:38 | Emergency (ER) | payer OTHER ==
[~2024-02-15] VITALS: Wt 127.5 kg
[~2024-02-15 12:38] MED LIST changes: +BUSPAR15 MG PO; +LASIX40 MG PO; +Lantus SC; +POTASSIUM CHLO20 ME4 PO; +PRISTIQ50 MG PO
[2024-02-15] MEDS ORDERED: Naloxone Hydrochloride 2 MG/2 ML SYR IV ONE ×2 (12:50→13:40)
[2024-02-15 13:06] LABS: BASO % 0.5 % (0.0-1.0); EOS # 0.3 10*3/uL (0.0-0.4); EOS % 3.4 % (1.0-4.0); HEMATOCRIT 30.5 % (37.0-47.0); LYMPH # 1.5 10*3/uL (1.3-4.4); LYMPH % 20.4 % (27.0-41.0); MEAN CORPUSCULAR HGB 27.4 pg (27.0-31.0); MEAN CORPUSCULAR HGB CONC 29.5 g/dl (33.0-37.0); MONO # 0.6 10*3/uL (0.1-1.0); MONO % 8.3 % (3.0-9.0); NEUT # 4.9 10*3/uL (2.3-7.9); NEUT % 66.7 % (47.0-73.0); PLATELET COUNT AUTOMATED 304 10*3/uL (130-400); RED BLOOD COUNT 3.28 10*6/uL (4.10-5.10); RED CELL DISTRI WIDTH 14.3 % (0-14.5); WHITE BLOOD COUNT 7.4 10*3/uL (4.8-10.8)
[2024-02-15 13:23] LABS: ACT PARTIAL THROMBO TIME 25.7 SECONDS (20.0-32.1)
[2024-02-15 13:46] LABS: ALKALINE PHOSPHATASE 82 U/L (46-116); BUN 25 mg/dl (9-23); CHLORIDE 101 mmol/L (98-107); POTASSIUM 3.9 mmol/L (3.4-5.1); TOTAL PROTEIN 6.6 gm/dL (6.0-8.0)
[2024-02-15 13:52] LABS: SGPT/ALT < 7 U/L (5-49)
[2024-02-15] MEDS ORDERED: TYLENOL EXTRA500 MG PO (14:23)
[2024-02-15 16:07] VITALS: BP 105/59
== END 2024-02-15 15:44 | disposition home or self-care (01) ==
LOC: ED 12:38
PROVIDERS: Nurse Practitioner
DX: T40.421A Poisoning by tramadol, accidental (unintentional), initial encounter (principal); I11.0 Hypertensive heart disease with heart failure; I50.9 Heart failure, unspecified; J44.9 Chronic obstructive pulmonary disease, unspecified; E11.40 Type 2 diabetes mellitus with diabetic neuropathy, unspecified; R41.82 Altered mental status, unspecified; R53.83 Other fatigue; F17.200 Nicotine dependence, unspecified, uncomplicated; Z90.49 Acquired absence of other specified parts of digestive tract; Z98.890 Other specified postprocedural states; Y92.89 Other specified places as the place of occurrence of the external cause